=== PATIENT | male | born 1945 | race Caucasian/White ===

== ENCOUNTER 2018-03-27 10:32 | Emergency (ER) | payer MEDICARE, OTHER ==
[2018-03-27 11:20] LABS: ABSOLUTE BASOPHILS # (AUTO) 0.1 10^3/uL (0.0-0.2); ABSOLUTE EOSINOPHILS # (AUTO) 0.1 10^3/uL (0.0-0.6); ABSOLUTE LYMPHOCYTES (AUTO) 1.7 10^3/uL (0.5-4.7); ABSOLUTE MONOCYTES (AUTO) 1.3 10^3/uL (0.1-1.4); ABSOLUTE NEUT (AUTO) 9.7 10^3/uL (1.7-8.2); BASOPHILS % (AUTO) 0.9 % (0-2); EOSINOPHILS % (AUTO) 0.7 % (0-6); HEMATOCRIT 35.9 % (37.9-51.0); HEMOGLOBIN 12.2 g/dL (13.5-17.0); LYMPHOCYTES % (AUTO) 13.3 % (13-45); MEAN CORPUSCULAR HEMOGLOBIN 27.8 pg (27.0-33.4); MEAN CORPUSCULAR HGB CONC 33.9 g/dL (32.0-36.0); MEAN CORPUSCULAR VOLUME 82 fl (80-97); PLATELET COUNT 439 10^3/uL (150-450); RED BLOOD COUNT 4.38 10^6/uL (4.35-5.55); RED CELL DISTRIBUTION WIDTH 14.2 % (11.5-14.0); SEGMENTED NEUTROPHILS % (AUTO) 75.1 % (42-78); TOTAL CELLS COUNTED % (AUTO) 100 %; WHITE BLOOD COUNT 12.9 10^3/uL (4.0-10.5)
[2018-03-27 11:52] LABS: ALANINE AMINOTRANSFERASE 16 U/L (21-72); ALBUMIN 3.7 g/dL (3.5-5.0); ALKALINE PHOSPHATASE 59 U/L (38-126); ANION GAP 13 (5-19); ASPARTATE AMINO TRANSFERASE 21 U/L (17-59); BILIRUBIN,DIRECT 0.6 mg/dL (0.0-0.4); BILIRUBIN,TOTAL 0.6 mg/dL (0.2-1.3); BLOOD UREA NITROGEN 18 mg/dL (7-20); CALCIUM 10.1 mg/dL (8.4-10.2); CARBON DIOXIDE 27 mmol/L (22-30); CHLORIDE 100 mmol/L (98-107); CREATINE KINASE 41 U/L (55-170); GLUCOSE 115 mg/dL (75-110); POTASSIUM 4.5 mmol/L (3.6-5.0); TOTAL PROTEIN 7.3 g/dL (6.3-8.2)
[2018-03-27 12:03] LABS: CREATINE KINASE MB 0.36 ng/mL (<4.55)
[2018-03-27 12:04] LABS: TROPONIN I < 0.012 ng/mL
--- NOTE | 2018-03-27 12:19 | RADIOLOGY REPORT (SQ) ---
EXAM DESCRIPTION: CHEST SINGLE VIEW COMPLETED DATE/TIME: 03/27/2018 11:47 am REASON FOR STUDY: SOB COMPARISON: 02/02/2013 EXAM PARAMETERS: NUMBER OF VIEWS: One view. TECHNIQUE: Single frontal radiographic view of the chest acquired. RADIATION DOSE: NA LIMITATIONS: None. FINDINGS: LUNGS AND PLEURA: Hyperexpansion of the lungs. Masslike opacification in the left upper l obe measuring about 7 or 8 cm. MEDIASTINUM AND HILAR STRUCTURES: No masses. Contour normal. HEART AND VASCULAR STRUCTURES: Heart normal in size. Normal vasculature. BONES: No acute findings. HARDWARE: Sternotomy wires. Graft markers. OTHER: No other significant finding. IMPRESSION: Large left upper lobe lung mass versus consolidation. TECHNICAL DOCUMENTATION: JOB ID: [id number] [employer] [place]- All Rights Reserved Reading location - IP/workstation name: [email or web address]
[2018-03-27] MEDS ORDERED: NORMAL SALINE 1000 ML 1,000 ML IV ONE (12:23)
[2018-03-27] MEDS ORDERED: IPRATROPIUM/ALBUTEROL 0.5-2.5 MG/3 ML AMPUL NEB ONE (12:24)
[2018-03-27] MEDS ORDERED: LEVOFLOXACIN 500 MG/D5W RTU 500 MG/100 ML RTUPB IV ONE (12:32)
[2018-03-27 13:05] LABS: APPEARANCE,URINE CLEAR; BILIRUBIN,URINE NEGATIVE (NEGATIVE); COLOR,URINE YELLOW; GLUCOSE, URINE NEGATIVE (NEGATIVE); KETONES,URINE NEGATIVE (NEGATIVE); LEUKOCYTE ESTERASE,URINE NEGATIVE (NEGATIVE); NITRITE,URINE NEGATIVE (NEGATIVE); PROTEIN,URINE NEGATIVE (NEGATIVE); URINE SPECIFIC GRAVITY 1.015
--- NOTE | 2018-03-27 14:29 | RADIOLOGY REPORT (SQ) ---
EXAM DESCRIPTION: CTA CHEST COMPLETED DATE/TIME: 03/27/2018 2:11 pm REASON FOR STUDY: SOB,eval lung mass v pna COMPARISON: Chest x-ray dated 03/27/2018. TECHNIQUE: CT scan of the chest performed using helical scanning technique with dynamic intravenous contrast injection. Images reviewed with lung, soft tissue and bone windows. Reconstructed coronal and sagittal MPR images reviewed. Additional 3 dimensional post-processing performed to develop Maximal Intensity Projection images (DC P). All images stored on PACS. All CT scanners at this facility use dose modulation, iterative reconstruction, and/or weight based d osing when appropriate to reduce radiation dose to as low as reasonably achievable (ALARA). [facility]: Dose Right [facility]: CareDose [facility]: Dose Right [facility]: Teradose 4D [facility]: CloudSync CONTRAST TYPE AND DOSE: 67 mL Isovue 370- low osmolar. Contrast bolus adequate for pulmonary arteries and aorta. RENAL FUNCTION: BUN 18 creatinine 1.23. RADIATION DOSE: CT Rad equipment meets quality standard of care and radiation dose reduction techniq ues were employed. CTDIvol: 14.3 - 16.5 mGy. DLP: 637 mGy-cm. . LIMITATIONS: None. FINDINGS: LUNGS AND PLEURA: Emphysematous changes with scarring in the lung apices. Large mass occu pying a large portion of the left upper lobe. AP measurement 8.4 cm, transverse measurement 7.6 cm, craniocaudal measurement 9.4 cm. The mass extends from the left hilum to the lateral pleural surface . The mass surrounds and encases the left upper lobe pulmonary artery and left main pulmonary artery . 4 mm nodule in the right lower lobe (axial series 4, image 84), 5 mm subpleural nodule in the left lower lobe (axial series 4, image 77), and 1.1 cm nodule in the left lower lobe (axial series 4, boo ge 85). Minimal left pleural effusion. AORTA AND GREAT VESSELS: No aneurysm. No dissection. HEART: No pericardial effusion. No significant coronary artery calcifications. PULMONARY ARTERIES: No emboli visualized in the main pulmonary arteries or the segmental branches. HILAR AND MEDIASTINAL STRUCTURES: Several enlarged paratracheal lymph nodes measuring up to 1.4 cm. Enlarged subcarinal lymph node measuring 3.5 cm. HARDWARE: None in the chest. UPPER ABDOMEN: No significant findings. Limited exam. THYROID AND OTHER SOFT TISSUES: 1.3 cm solid nodule in the subcutaneous fatty tissues of the right an terior chest wall (axial series 3, image 105). BONES: No acute or significant finding. 3D MIPS: Confirm above findings. OTHER: No other significant finding. IMPRESSION: 1. LARGE MASS IN THE LEFT UPPER LOBE MOST CONSISTENT WITH MALIGNANCY. THERE ARE PULMONARY NODULES IN BOTH LOWER LOBES CONCERNING FOR METASTASES, PARTICULARLY THE LARGER 1.1 CM NODULE IN THE LEFT LOWER LOBE. 2. 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 3. SOLID NODULE IN THE SOFT TISSUES OF THE ANTERIOR RIGHT CHEST WALL. THIS COULD BE A DERMATOLOGIC L ESION ALTHOUGH SOFT TISSUE METASTASIS WOULD BE ANOTHER CONSIDERATION. 4. EMPHYSEMATOUS CHANGES WITH SCARRING IN THE LUNG APICES. MINIMAL LEFT PLEURAL EFFUSION. 5. NORMAL CTA OF THE CHEST. NO PULMONARY EMBOLI. COMMENT: Quality ID # [id number]: Final reports with documentation of one or more dose reduction techniques (e.g., Automated exposure control, adjustment of the mA and/or kV according to patient size, use of iterative reconstruction technique) TECHNICAL DOCUMENTATION: JOB ID: [id number] [email or web address]- All Rights Reserved Reading location - IP/workstation name: [email or web address]
[2018-03-27] MEDS ORDERED: PREDNISONE 20 MG TABLET PO ONE (14:46)
[2018-03-27] MEDS ORDERED: ALBUTEROL SULFATE HFA (90 MCG/PUFF) 8 GM MDI (1 MDI/ER DISP) IH ONE (14:48)
--- NOTE | 2018-03-27 14:51 | ER Document Report ---
ED General - General Chief Complaint: Shortness Of Breath Stated Complaint: SHORTNESS OF BREATH Time Seen by Provider: 03/27/18 11:42 - HPI Patient complains to provider of: Shortness of breath Notes: Patient coming in for evaluation shortness of breath patient has a significant smoking history states shortness of breath worsening especially with exertion. Patient states he is intermittent formally diagnosed with form COPD however states there was some slight changes in his last PFT testing. Patient states PCP is Dr. Rojas who he has a appointment with the see on the 6 however because worsening shortness of breath came in for further evaluation denies any chest pain denies any recent travel denies fevers chills nausea vomiting diarrhea states cough with white sputum states also having some night sweats. Patient resting comfortably upon my evaluation no signs of hypoxia.. - Related Data Allergies/Adverse Reactions: No Known Allergies Allergy (Verified 03/27/18 10:42) Past Medical History - Social History Smoking Status: Current Every Day Smoker Chew tobacco use (# tins/day): No Frequency of alcohol use: None Drug Abuse: None Family History: Reviewed & Not Pertinent Patient has suicidal ideation: No Patient has homicidal ideation: No - Past Medical History Cardiac Medical History: Reports: Hx Coronary Artery Disease, Hx Heart Attack, Hx Hypertension Renal/ Medical History: Denies: Hx Peritoneal Dialysis Past Surgical History: Reports: Hx Open Heart Surgery - triple bypass - Immunizations Hx Pneumococcal Vaccination: 02/02/13 Review of Systems - Review of Systems Constitutional: No symptoms reported EENT: No symptoms reported Cardiovascular: No symptoms reported Respiratory: Other - Dyspnea on exertion Gastrointestinal: No symptoms reported Genitourinary: No symptoms reported Male Genitourinary: No symptoms reported Musculoskeletal: No symptoms reported Skin: No symptoms reported Hematologic/Lymphatic: No symptoms reported Neurological/Psychological: No symptoms reported Physical Exam - Vital signs Vitals: Temp Pulse Resp BP Pulse Ox 97.9 F 96 18 135/88 H 97 03/27/18 10:47 03/27/18 10:47 03/27/18 10:47 03/27/18 10:47 03/27/18 10:47 Interpretation: Normal - General General appearance: Appears well, Alert - HEENT Head: Normocephalic, Atraumatic Eyes: Normal Pupils: PERRL - Respiratory Respiratory status: No respiratory distress Chest status: Nontender Breath sounds: Wheezing Chest palpation: Normal - Cardiovascular Rhythm: Regular Heart sounds: Normal auscultation Murmur: No - Abdominal Inspection: Normal Distension: No distension Bowel sounds: Normal Tenderness: Nontender Organomegaly: No organomegaly - Back Back: Normal, Nontender - Extremities General upper extremity: Normal inspection, Nontender, Normal color, Normal ROM , Normal temperature General lower extremity: Normal inspection, Nontender, Normal color, Normal ROM , Normal temperature, Normal weight bearing. No: Nika's sign - Neurological Neuro grossly intact: Yes Cognition: Normal Orientation: AAOx4 [place] Coma Scale Eye Opening: Spontaneous [place] Coma Scale Verbal: Oriented [place] Coma Scale Motor: Obeys Commands [place] Coma Scale Total: 15 Speech: Normal Motor strength normal: LUE, RUE, LLE, RLE Sensory: Normal - Psychological Associated symptoms: Normal affect, Normal mood - Skin Skin Temperature: Warm Skin Moisture: Dry Skin Color: Normal Course - Re-evaluation Re-evalutation: 03/27/18 15:[address] scan and x-ray confirmed the patient has a large mass left upper lobe initially concerning for possible pulmonic process or obstructive pneumonia therefore patient was started on Levaquin did discuss with PCP as to continue Levaquin for 7 days last steroids and bronchodilator therapy. Otherwise patient is not requiring any supportive therapy for us patient understands his diagnosis is more likely underlying metastatic disease and his need for follow- up on the sixth as scheduled. PCPs agrees plan patent patient agrees this plan patient will be discharged home - Vital Signs Vital signs: Temp Pulse Resp BP Pulse Ox 97.9 F 96 23 H 135/83 H 98 03/27/18 10:47 03/27/18 10:47 03/27/18 12:01 03/27/18 12:01 03/27/18 12:00 - Laboratory Result Diagrams: 03/27/18 11:12 03/27/18 11:12 Laboratory results interpreted by me: 03/27/18 03/27/18 03/27/18 11:12 11:12 12:26 WBC 12.9 H Hgb 12.2 L Hct 35.9 L RDW 14.2 H Absolute Neutrophils 9.7 H Est GFR (Non-Af Amer) 58 L Glucose 115 H Direct Bilirubin 0.6 H ALT 16 L Creatine Kinase 41 L Urine Urobilinogen 2.0 H Discharge - Discharge Clinical Impression: Shortness of breath, Mass of left lung Condition: Good Disposition: HOME, SELF-CARE Instructions: Chronic Obstructive Lung Disease ([facility]), Growth or Mass, Pending Workup ([facility]) Additional Instructions: Your evaluation today shows a left lung mass that may be underlying cancer. I discussed the case with your primary care physician. There are multiple steps that lightheaded you the most important is following up with him on the sixth for further evaluation and to start the referral process. 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 Please take his medications as prescribed return to ER symptoms worsen. Prescriptions: Albuterol Sulfate [Proair HFA Inhalation Aerosol 8.5 gm MDI] 2 puff IH Q4H PRN # 1 mdi PRN Reason: Levofloxacin [Levaquin] 500 mg PO DAILY #6 tablet Prednisone [Deltasone] 60 mg PO DAILY #24 tablet Forms: Smoking Cessation Education Referrals: KRUPA ROJAS MD [Primary Care Provider] - 03/29/18
[2018-03-27 15:27] VITALS: BP 156/85
--- NOTE | 2018-03-27 20:00 | EKG REPORT ---
SEVERITY:- NORMAL ECG - SINUS RHYTHM : Confirmed by: Sherley Davila MD 27-Mar-2018 19:59:48
== END 2018-03-27 15:28 | disposition home or self-care (01) ==
LOC: ER 10:32
DX: R06.02 Shortness of breath (principal); R91.8 Other nonspecific abnormal finding of lung field; F17.200 Nicotine dependence, unspecified, uncomplicated; I25.10 Atherosclerotic heart disease of native coronary artery without angina pectoris; I10 Essential (primary) hypertension
CPT/HCPCS: 93005; 94640; 99285; 96365; 36415; 87040; 82553; 82550; 85025; 80053; 81001; 84484; 71045; 71275; 93010; J1956; A9270 ×2; J7030; J3490; J7512; J7620

== ENCOUNTER 2018-04-02 10:57 | Emergency (ER) | payer MEDICARE, OTHER ==
--- NOTE | 2018-04-02 11:14 | ER Document Report ---
ED Medical Screen (RME) - General Chief Complaint: Lower Abdominal Pain Stated Complaint: POSSIBLE HERNIA Time Seen by Provider: 04/02/18 11:10 Mode of Arrival: Wheelchair Information source: Patient Notes: This is a 73-year-old man with a long history of a right inguinal hernia resenting with lower abdominal pain around that hernia. Patient states that the pain is gotten worse lately because of increased coughing. He is recently been diagnosed with a large lung mass consistent with cancer and suspected metastases. He is a patient of Dr. Rojas. He states that the pain has been getting worse with the coughing. I have greeted and performed a rapid initial assessment of this patient. A comprehensive ED assessment and evaluation of the patient, analysis of test results and completion of medical decision making process we will be contacted by additional ED providers. - Related Data Allergies/Adverse Reactions: No Known Allergies Allergy (Verified 04/02/18 10:58) Past Medical History - Past Medical History Cardiac Medical History: Reports: Hx Coronary Artery Disease, Hx Heart Attack, Hx Hypertension Renal/ Medical History: Denies: Hx Peritoneal Dialysis Past Surgical History: Reports: Hx Open Heart Surgery - triple bypass Physical Exam - Vital signs Vitals: Temp Pulse Resp BP Pulse Ox 97.4 F 106 H 16 146/95 H 98 04/02/18 11:01 04/02/18 11:01 04/02/18 11:01 04/02/18 11:01 04/02/18 11:01 Course - Vital Signs Vital signs: Temp Pulse Resp BP Pulse Ox 97.4 F 106 H 16 146/95 H 98 04/02/18 11:01 04/02/18 11:01 04/02/18 11:01 04/02/18 11:01 04/02/18 11:01 Doctor's Discharge - Discharge Referrals: KRUPA ROJAS MD [Primary Care Provider] - Follow up as needed
[2018-04-02 11:47] LABS: HEMATOCRIT 36.9 % (37.9-51.0); HEMOGLOBIN 12.4 g/dL (13.5-17.0); MEAN CORPUSCULAR HEMOGLOBIN 27.5 pg (27.0-33.4); MEAN CORPUSCULAR HGB CONC 33.6 g/dL (32.0-36.0); MEAN CORPUSCULAR VOLUME 82 fl (80-97); PLATELET COUNT 422 10^3/uL (150-450); RED BLOOD COUNT 4.51 10^6/uL (4.35-5.55); RED CELL DISTRIBUTION WIDTH 14.6 % (11.5-14.0); WHITE BLOOD COUNT 20.7 10^3/uL (4.0-10.5)
[2018-04-02 11:58] LABS: ALANINE AMINOTRANSFERASE 15 U/L (21-72); ALBUMIN 3.2 g/dL (3.5-5.0); ALKALINE PHOSPHATASE 57 U/L (38-126); ANION GAP 13 (5-19); ASPARTATE AMINO TRANSFERASE 19 U/L (17-59); BILIRUBIN,DIRECT 0.4 mg/dL (0.0-0.4); BILIRUBIN,TOTAL 0.4 mg/dL (0.2-1.3); BLOOD UREA NITROGEN 18 mg/dL (7-20); CALCIUM 9.4 mg/dL (8.4-10.2); CARBON DIOXIDE 28 mmol/L (22-30); CHLORIDE 101 mmol/L (98-107); GLUCOSE 101 mg/dL (75-110); POTASSIUM 3.8 mmol/L (3.6-5.0); SODIUM 141.7 mmol/L (137-145); TOTAL PROTEIN 6.3 g/dL (6.3-8.2)
[2018-04-02 12:11] LABS: ABSOLUTE LYMPHOCYTES# (MANUAL) 1.7 10^3/uL (0.5-4.7); ABSOLUTE MONOCYTES # (MANUAL) 1.4 10^3/uL (0.1-1.4); ABSOLUTE NEUTROPHILS# (MANUAL) 17.6 10^3/uL (1.7-8.2); BASOPHILS % (MANUAL) 0 % (0-2); EOSINOPHILS % (MANUAL) 0 % (0-6); LYMPHOCYTES % (MANUAL) 8 % (13-45); MONOCYTES % (MANUAL) 7 % (3-13); SEGMENTED NEUTROPHILS % (MAN) 85 % (42-78); TOTAL CELLS COUNTED 100
[2018-04-02 12:13] LABS: ANISOCYTOSIS SLIGHT; OVALOCYTES SLIGHT; PLATELET COMMENT ADEQUATE; POIKILOCYTOSIS SLIGHT
[2018-04-02] MEDS ORDERED: NORMAL SALINE 1000 ML 1,000 ML IV ONE (12:26)
[2018-04-02] MEDS ORDERED: HYDROCODONE/ACETAMINOPHEN 5-325 MG TABLET PO ONE (12:26)
--- NOTE | 2018-04-02 13:10 | ER Document Report ---
ED General - General Chief Complaint: Lower Abdominal Pain Stated Complaint: POSSIBLE HERNIA Time Seen by Provider: 04/02/18 11:10 Mode of Arrival: Wheelchair Information source: Patient, Relative Notes: 73-year-old male with a known lung mass presents with complaints of an inguinal hernia that is causing him pain. Patient notes the hernia has started to bother him over the past couple weeks and that he has had this for at least 30 years. He denies any constipation that is new, last bowel movement was 2 days ago which is normal for him, patient notes the hernia is easily reducible, he does note a 10 pound weight loss in the past month - HPI Onset: Last week Onset/Duration: Waxing and waning Quality of pain: Sharp Severity: Moderate Pain Level: 2 Associated symptoms: Other Exacerbated by: Coughing Relieved by: Other - Resolved with pressure Similar symptoms previously: Yes Recently seen / treated by doctor: Yes - Related Data Allergies/Adverse Reactions: No Known Allergies Allergy (Verified 04/02/18 10:58) Past Medical History - General Information source: Patient - Social History Smoking Status: Current Every Day Smoker Cigarette use (# per day): Yes Chew tobacco use (# tins/day): No Smoking Education Provided: No Frequency of alcohol use: Occasional Drug Abuse: None Family History: Reviewed & Not Pertinent Patient has suicidal ideation: No Patient has homicidal ideation: No - Past Medical History Cardiac Medical History: Reports: Hx Coronary Artery Disease, Hx Heart Attack, Hx Hypertension Renal/ Medical History: Denies: Hx Peritoneal Dialysis Past Surgical History: Reports: Hx Open Heart Surgery - triple bypass - Immunizations Hx Pneumococcal Vaccination: 02/02/13 Review of Systems - Review of Systems Notes: REVIEW OF SYSTEMS: CONSTITUTIONAL : Denies fever, chills, or sweats. Denies recent illness. EENT: Denies eye, ear, throat, or mouth pain or symptoms. Denies nasal or sinus congestion or discharge. Denies throat, tongue, or mouth swelling or difficulty swallowing. CARDIOVASCULAR: Denies chest pain. Denies palpitations or racing or irregular heart beat. Denies ankle edema. RESPIRATORY: Denies cough, cold, or chest congestion. Denies shortness of breath, difficulty breathing, or wheezing. GASTROINTESTINAL: Admits to inguinal mass GENITOURINARY: Denies difficulty urinating, painful urination, burning, frequency, blood in urine, or discharge. MUSCULOSKELETAL: Denies back or neck pain or stiffness. Denies joint pain or swelling. SKIN: Denies rash, lesions or sores. HEMATOLOGIC : Denies easy bruising or bleeding. LYMPHATIC: Denies swollen, enlarged glands. NEUROLOGICAL: Denies confusion or altered mental status. Denies passing out or loss of consciousness. Denies dizziness or lightheadedness. Denies headache. Denies weakness or paralysis or loss of use of either side. Denies problems with gait or speech. Denies sensory loss, numbness, or tingling. Denies seizures. PSYCHIATRIC: Denies anxiety or stress. Denies depression, suicidal ideation, or homicidal ideation. ALL OTHER SYSTEMS REVIEWED AND NEGATIVE. Dictation was performed using [employer] voice recognition software PHYSICAL EXAMINATION: GENERAL: Well-appearing, well-nourished and in no acute distress. HEAD: Atraumatic, normocephalic. EYES: Pupils equal round and reactive to light, extraocular movements intact, sclera anicteric, conjunctiva are normal. ENT: Nares patent, oropharynx clear without exudates. Moist mucous membranes. NECK: Normal range of motion, supple without lymphadenopathy LUNGS: Breath sounds clear to auscultation bilaterally and equal. No wheezes rales or rhonchi. HEART: Regular rate and rhythm without murmurs ABDOMEN: Soft, nontender, nondistended abdomen. No guarding, no rebound. No masses appreciated. Large right inguinal hernia easily reduced with gentle pressure Musculoskeletal: Normal range of motion, no pitting or edema. No cyanosis. NEUROLOGICAL: Cranial nerves grossly intact. Normal speech, normal gait. Normal sensory, motor exams PSYCH: Normal mood, normal affect. SKIN: Warm, Dry, normal turgor, no rashes or lesions noted. Physical Exam - Vital signs Vitals: Temp Pulse Resp BP Pulse Ox 97.4 F 106 H 16 146/95 H 98 04/02/18 11:01 04/02/18 11:01 04/02/18 11:01 04/02/18 11:01 04/02/18 11:01 Course - Re-evaluation Re-evalutation: 04/02/18 16:13 Patient's white count is noted to be 20.7 however he is on prednisone, patient is on antibiotics for pneumonia as well, a CT oral and IV contrast was performed , there is no obstruction noted however there is multiple masses concerning for metastasis, I did explain this to family and to the patient, patient is very understanding of these findings and states he will follow-up with oncology on his first appointment on Tuesday. Patient was given pain control notes significant improvement of his symptoms, After performing a Medical Screening Examination, I estimate there is LOW risk forINCARCERATED HERNIA,thus I consider the discharge disposition reasonable. Also, there is no evidence or peritonitis, sepsis, or toxicity. I have reevaluated this patient multiple times and no significant life threatening changes are noted. The patient and I have discussed the diagnosis and risks, and we agree with discharging home with close follow-up with the understanding that symptoms and presentations can change. We also discussed returning to the Emergency Department immediately if new or worsening symptoms occur. We have discussed the symptoms which are most concerning (e.g., bloody stool, fever, changing or worsening pain, intractable vomiting - standard verbal up date) that necessitate immediate return. 04/02/18 16:15 - Vital Signs Vital signs: Temp Pulse Resp BP Pulse Ox 97.7 F 83 16 141/89 H 99 04/02/18 14:55 04/02/18 14:55 04/02/18 14:55 04/02/18 14:55 04/02/18 14:55 - Laboratory Result Diagrams: 04/02/18 11:25 04/02/18 11:25 Laboratory results interpreted by me: 04/02/18 04/02/18 11:25 11:25 WBC 20.7 H Hgb 12.4 L Hct 36.9 L RDW 14.6 H Seg Neuts % (Manual) 85 H Lymphocytes % (Manual) 8 L Abs Neuts (Manual) 17.6 H ALT 15 L Albumin 3.2 L - Diagnostic Test Radiology reviewed: Image reviewed - CT oral and IV contrast consistent with multiple soft tissue nodules, Reports reviewed Procedures - Additional Procedures hernia reduction Time performed: 12:35 - using gentle traction large right inguinal hernia reduced Discharge - Discharge Clinical Impression: Mass of left lung Abdominal mass Qualifiers: Abdominal location: generalized Qualified Code(s): R19.07 - Generalized intra- abdominal and pelvic swelling, mass and lump Inguinal hernia Qualifiers: Obstruction and gangrene presence: without obstruction or gangrene Laterality: unilateral Recurrence: recurrent Qualified Code(s): K40.91 - Unilateral inguinal hernia, without obstruction or gangrene, recurrent Condition: Stable Disposition: HOME, SELF-CARE Instructions: Growth or Mass, Pending Workup ([facility]) Prescriptions: Hydrocodone/Acetaminophen [[place] 5-325 mg Tablet] 1 tab PO Q6 #30 tablet Referrals: KRUPA ROJAS MD [Primary Care Provider] - Follow up as needed
--- NOTE | 2018-04-02 14:27 | RADIOLOGY REPORT (SQ) ---
EXAM DESCRIPTION: CT ABD/PELVIS WITH IV ORAL COMPLETED DATE/TIME: 04/02/2018 2:09 pm REASON FOR STUDY: lower anbdominal pain around hernia COMPARISON: CT chest 03/27/2018. TECHNIQUE: CT scan of the abdomen and pelvis performed with intravenous and oral contrast using bryon renetta scanning technique with dynamic intravenous contrast injection. Images reviewed with lung, soft t issue, and bone windows. Reconstructed coronal and sagittal MPR images reviewed. Delayed images for e valuation of the urinary system also acquired. All images stored on PACS. All CT scanners at this facility use dose modulation, iterative reconstruction, and/or weight based d osing when appropriate to reduce radiation dose to as low as reasonably achievable (ALARA). [facility]: Dose Right [facility]: CareDose [facility]: Dose Right [facility]: Teradose 4D [facility]: [employer] CONTRAST TYPE AND DOSE: contrast/concentration: Isovue 370.00 mg/ml; Total Contrast Delivered: 78.0 ml; Total Saline Delivered: 67.0 ml RENAL FUNCTION: GFR > 60. RADIATION DOSE: CT Rad equipment meets quality standard of care and radiation dose reduction techniq ues were employed. CTDIvol: 5.1 - 6.3 mGy. DLP: 608 mGy-cm.. LIMITATIONS: None. FINDINGS: LOWER CHEST: Clear lung bases. Along the subcutaneous tissues of the ventral chest wall, there are small soft tissue nodules. Largest on the right (image 3), 1.4 cm. LIVER: Normal size. No masses. No dilated ducts. SPLEEN: Normal size. No focal lesions. PANCREAS: No masses. No significant calcifications. No adjacent inflammation or peripancreatic fluid collections. Pancreatic duct not dilated. GALLBLADDER: No identified stones by CT criteria. No inflammatory changes to suggest cholecystitis. ADRENAL GLANDS: No significant masses or asymmetry. RIGHT KIDNEY AND URETER: No solid masses. No significant calcification. No hydronephrosis or hydroure ter. LEFT KIDNEY AND URETER: No solid masses. No significant calcification. No hydronephrosis or hydrouret er. AORTA AND VESSELS: Infrarenal aortic aneurysm, up to 3.3 cm. Patent major arterial branches. No thania ous clot detected. RETROPERITONEUM: Small soft tissue nodules are present in the retroperitoneum just above the right ki dney and below the lower pole of the left kidney. BOWEL AND PERITONEAL CAVITY: Mild gaseous distension of much of the transverse colon with moderate pr oximal colonic stool. No evidence of mechanical bowel obstruction. No bowel related inflammatory pr ocess. APPENDIX: Not visualized. PELVIS: Small right perirectal soft tissue nodule, subcentimeter. Axial image 83. Enlarged prostate . Normal bladder. Along the most inferior images, there is a potential perineal soft tissue mass me asuring 2.5 cm, image 96. This lies posterior to the testicles. ABDOMINAL WALL: Minimal right inguinal hernia containing fat. This also contains a minimal amount of colon. BONES: No significant or acute findings. OTHER: No other significant finding. IMPRESSION: 1. No acute abdominopelvic abnormality appreciated. 2. Soft tissue implants in the re troperitoneum and pelvis. Suspicious for metastases, particularly in light of the known lung mass an d chest wall subcutaneous nodules. This includes a sizable perineal lesion, incompletely assessed. TECHNICAL DOCUMENTATION: JOB ID: [id number] Quality ID # [id number]: Final reports with documentation of one or more dose reduction techniques (e.g., Au tomated exposure control, adjustment of the mA and/or kV according to patient size, use of iterative reconstruction technique) [email or web address] Rights Reserved Reading location - IP/workstation name: [email or web address]
[2018-04-02 14:56] VITALS: BP 141/89
== END 2018-04-02 14:55 | disposition home or self-care (01) ==
LOC: ER 10:57
DX: K40.91 Unilateral inguinal hernia, without obstruction or gangrene, recurrent (principal); R19.07 Generalized intra-abdominal and pelvic swelling, mass and lump; R91.8 Other nonspecific abnormal finding of lung field; R63.4 Abnormal weight loss; Z68.1 Body mass index [BMI] 19.9 or less, adult; I25.10 Atherosclerotic heart disease of native coronary artery without angina pectoris; I10 Essential (primary) hypertension; F17.210 Nicotine dependence, cigarettes, uncomplicated; Z95.1 Presence of aortocoronary bypass graft
CPT/HCPCS: 99284; 96360; 36415; 83605; 85025; 80053; 74177; J7030; A9270

== ENCOUNTER 2018-04-05 05:39 | Inpatient (IN) | payer MEDICARE, OTHER ==
[2018-04-05 06:52] LABS: ALANINE AMINOTRANSFERASE 19 U/L (21-72); ALBUMIN 2.9 g/dL (3.5-5.0); ALKALINE PHOSPHATASE 64 U/L (38-126); ANION GAP 9 (5-19); ASPARTATE AMINO TRANSFERASE 26 U/L (17-59); BILIRUBIN,DIRECT 0.4 mg/dL (0.0-0.4); BILIRUBIN,TOTAL 0.4 mg/dL (0.2-1.3); BLOOD UREA NITROGEN 19 mg/dL (7-20); CALCIUM 8.6 mg/dL (8.4-10.2); CARBON DIOXIDE 26 mmol/L (22-30); CHLORIDE 102 mmol/L (98-107); GLUCOSE 106 mg/dL (75-110); LIPASE 33.4 U/L (23-300); POTASSIUM 4.1 mmol/L (3.6-5.0); SODIUM 137.3 mmol/L (137-145); TOTAL PROTEIN 5.9 g/dL (6.3-8.2)
[2018-04-05 06:53] LABS: ACETAMINOPHEN < 10 ug/mL (10-30); ALCOHOL < 10 mg/dL (NONE DETECTED); SALICYLATE < 1.0 mg/dL (2.0-20.0)
--- NOTE | 2018-04-05 07:00 | RADIOLOGY REPORT (SQ) ---
Clinical History : weakness , Exam : CT Head without contrast 04/05/2018 6:30 AM CDT Comparisons : none. Technique : Volumetric CT acquisition was performed through the brain. Images in the axial, coronal, and sagittal planes were presented for interpretation. This exam was performed according to our departmental dose-optimization program, which includes automated exposure control, adjustment of the mA and/or kV according to patient size and/or use of iterative reconstruction technique. Radiation dose : [id number] Findings: The soft tissue structures of the face, scalp, and orbits are normal. The globes remain intact. There is a scleral band on the left. The patient is status post bilateral cataract resection. The visualized portions of the paranasal sinuses and mastoid air-cells are clear. The calvarium remains intact . There is no acute intracranial hemorrhage, midline shift, or mass effect. The ventricles are normal in size and the posterior fossa structures are normal in appearance. Limited evaluation of the vasculature demonstrates no gross abnormalities. There is no CT evidence of acute infarction. Impression: No acute intracranial process.
[2018-04-05 07:05] LABS: AMORPHOUS SEDIMENT,URINE TRACE /HPF; APPEARANCE,URINE CLOUDY; BILIRUBIN,URINE NEGATIVE (NEGATIVE); COLOR,URINE YELLOW; GLUCOSE, URINE NEGATIVE (NEGATIVE); KETONES,URINE NEGATIVE (NEGATIVE); LEUKOCYTE ESTERASE,URINE NEGATIVE (NEGATIVE); NITRITE,URINE NEGATIVE (NEGATIVE); PROTEIN,URINE NEGATIVE (NEGATIVE); URINE SPECIFIC GRAVITY 1.013; UROBILINOGEN,URINE NEGATIVE mg/dL (<2.0)
--- NOTE | 2018-04-05 07:13 | RADIOLOGY REPORT (SQ) ---
Clinical History : weakness , Exam : PA and lateral views of the chest 04/05/2018 6:29 AM CDT Comparisons : PA and lateral views the chest February 02, 2013 Findings : There is confluent left upper lobe airspace disease. There are moderate emphysematous changes throughout the lungs bilaterally. There is no pleural effusion. The heart is stable in size. The mediastinal contours are distorted by patient rotation to the left . There are vascular calcifications along the aortic arch. The patient is status post sternotomy and CABG. The thoracic spine is age appropriate. The shoulders are unremarkable. Limited evaluation of the upper abdomen demonstrates no gross abnormalities. Impression: 1. Left upper lobe airspace disease, follow-up to radiographic resolution is recommended. 2. Stable emphysema.
[2018-04-05 07:16] LABS: URINE AMPHETAMINES SCREEN NEGATIVE; URINE BARBITURATES SCREEN NEGATIVE; URINE BENZODIAZEPINES SCREEN NEGATIVE; URINE COCAINE SCREEN NEGATIVE; URINE MARIJUANA (THC) SCREEN NEGATIVE; URINE METHADONE SCREEN NEGATIVE; URINE PHENCYCLIDINE SCREEN NEGATIVE
--- NOTE | 2018-04-05 07:16 | EKG REPORT ---
SEVERITY:- BORDERLINE ECG - SINUS TACHYCARDIA PROBABLE LEFT ATRIAL ABNORMALITY : Confirmed by: Zuhair Reid MD 05-Apr-2018 07:15:07
[2018-04-05 07:20] LABS: TROPONIN I 0.061 ng/mL
[2018-04-05] MEDS ORDERED: ASPIRIN 81 MG TABLET, CHEWABLE PO ONE (07:25)
--- NOTE | 2018-04-05 07:37 | ER Document Report ---
ED General - General Chief Complaint: Weakness Stated Complaint: WEAKNESS Time Seen by Provider: 04/05/18 06:02 Mode of Arrival: Medic Information source: Patient, Relative, Emergency Med Personnel, [facility] Records Notes: 73-year-old male with coronary artery disease, hypertension, lung cancer, associated metastasis presents with complaint of inability to move both arms and legs. Patient states that he awoke this morning and was unable to move his arms and legs. He states that he was "flopping around his bed like a fish." Patient denies slurred speech, chest pain, shortness of breath, fever, chills, nausea, vomiting. He denies prior similar symptoms. He states last night he went to bed feeling well. Patient is normally able to completely care for himself. TRAVEL OUTSIDE OF THE [place] IN LAST 30 DAYS: No - HPI Onset: This morning Onset/Duration: Gradual Quality of pain: Throbbing Severity: Moderate Associated symptoms: Body/muscle aches, Weakness. denies: Chest pain, Nausea, Vomiting Exacerbated by: Denies Relieved by: Denies Similar symptoms previously: No Recently seen / treated by doctor: Yes - Related Data Allergies/Adverse Reactions: No Known Allergies Allergy (Verified 04/02/18 10:58) Past Medical History - General Information source: Patient, Relative, [facility] Records - Social History Smoking Status: Current Every Day Smoker Cigarette use (# per day): Yes - 10 Chew tobacco use (# tins/day): No Smoking Education Provided: Yes - Patient counselled regarding cessation for 4 minutes Frequency of alcohol use: None Drug Abuse: None Lives with: Family Family History: Reviewed & Not Pertinent Patient has suicidal ideation: No Patient has homicidal ideation: No - Past Medical History Cardiac Medical History: Reports: Hx Coronary Artery Disease, Hx Heart Attack, Hx Hypertension Renal/ Medical History: Denies: Hx Peritoneal Dialysis Past Surgical History: Reports: Hx Open Heart Surgery - triple bypass - Immunizations Hx Pneumococcal Vaccination: 02/02/13 Review of Systems - Review of Systems Constitutional: Weakness. denies: Fever EENT: denies: Blurred vision Cardiovascular: denies: Chest pain, Palpitations, Syncope, Dizziness, Lightheaded Respiratory: denies: Short of breath Gastrointestinal: Abdominal pain - Chronic right inguinal hernia Genitourinary: denies: Dysuria, Flank pain Male Genitourinary: No symptoms reported Musculoskeletal: Muscle pain, Muscle stiffness Skin: Dryness Hematologic/Lymphatic: denies: Easy bleeding Neurological/Psychological: Loss of power, Paralysis. denies: Confusion, Hallucinations, Lost consciousness, Headaches -: Yes All other systems reviewed and negative Physical Exam - Vital signs Vitals: Resp Pulse Ox 18 94 04/05/18 05:46 04/05/18 05:46 - Notes Notes: PHYSICAL EXAMINATION: GENERAL: Well-appearing, well-nourished and in no acute distress. HEAD: Atraumatic, normocephalic. EYES: Pupils equal round and reactive to light, extraocular movements intact, sclera anicteric, conjunctiva are normal. ENT: Nares patent, oropharynx clear without exudates. Dry mucous membranes. NECK: Normal range of motion, supple without lymphadenopathy LUNGS: Breath sounds clear to auscultation bilaterally and equal. No wheezes rales or rhonchi. HEART: Regular rate and rhythm without murmurs ABDOMEN: Soft, nontender, nondistended abdomen. No guarding, no rebound. Right inguinal hernia easily reduced. Musculoskeletal: Normal range of motion, no pitting or edema. No cyanosis. NEUROLOGICAL: Cranial nerves grossly intact. Normal speech. Normal sensory, motor exams. NIH of 1 for right lower extremity drift. PSYCH: Normal mood, normal affect. SKIN: Warm, Dry, normal turgor, no rashes or lesions noted. Course - Re-evaluation Re-evalutation: Laboratory 04/05/18 04/05/18 04/05/18 05:44 05:44 05:44 APTT 35.4 Sodium 137.3 Potassium 4.1 Chloride 102 Carbon Dioxide 26 Anion Gap 9 BUN 19 Creatinine 1.02 Est GFR ( Amer) > 60 Est GFR (Non-Af Amer) > 60 Glucose 106 Lactic Acid Calcium 8.6 Total Bilirubin 0.4 Direct Bilirubin 0.4 Neonat Total Bilirubin Not Reportable Neonat Direct Bilirubin Not Reportable Neonat Indirect Bili Not Reportable AST 26 ALT 19 L Alkaline Phosphatase 64 Troponin I 0.061 NT-Pro-B Natriuret Pep 1220 H Total Protein 5.9 L Albumin 2.9 L Lipase 33.4 Urine Color Urine Appearance Urine pH Ur Specific [place] Urine Protein Urine Glucose (UA) Urine Ketones Urine Blood Urine Nitrite Urine Bilirubin Urine Urobilinogen Ur Leukocyte Esterase Urine WBC (Auto) Urine RBC (Auto) Amorphous Sediment Auto Urine Mucus (Auto) Urine Ascorbic Acid Salicylates < 1.0 L Urine Opiates Screen Urine Methadone Screen Acetaminophen < 10 L Ur Barbiturates Screen Ur Phencyclidine Scrn Ur Amphetamines Screen U Benzodiazepines Scrn Urine Cocaine Screen U Marijuana (THC) Screen Serum Alcohol < 10 04/05/18 04/05/18 04/05/18 06:02 06:02 07:00 APTT Sodium Potassium Chloride Carbon Dioxide Anion Gap BUN Creatinine Est GFR ( Amer) Est GFR (Non-Af Amer) Glucose Lactic Acid 1.6 Calcium Total Bilirubin Direct Bilirubin Neonat Total Bilirubin Neonat Direct Bilirubin Neonat Indirect Bili AST ALT Alkaline Phosphatase Troponin I NT-Pro-B Natriuret Pep Total Protein Albumin Lipase Urine Color YELLOW Urine Appearance CLOUDY Urine pH 8.0 Ur Specific [place] 1.013 Urine Protein NEGATIVE Urine Glucose (UA) NEGATIVE Urine Ketones NEGATIVE Urine Blood NEGATIVE Urine Nitrite NEGATIVE Urine Bilirubin NEGATIVE Urine Urobilinogen NEGATIVE Ur Leukocyte Esterase NEGATIVE Urine WBC (Auto) 3 Urine RBC (Auto) 2 Amorphous Sediment Auto TRACE Urine Mucus (Auto) RARE Urine Ascorbic Acid NEGATIVE Salicylates Urine Opiates Screen UNCONFIRMED POSITIVE Urine Methadone Screen NEGATIVE Acetaminophen Ur Barbiturates Screen NEGATIVE Ur Phencyclidine Scrn NEGATIVE Ur Amphetamines Screen NEGATIVE U Benzodiazepines Scrn NEGATIVE Urine Cocaine Screen NEGATIVE U Marijuana (THC) Screen NEGATIVE Serum Alcohol 04/05/18 10:08 APTT Sodium Potassium Chloride Carbon Dioxide Anion Gap BUN Creatinine Est GFR ( Amer) Est GFR (Non-Af Amer) Glucose Lactic Acid Calcium Total Bilirubin Direct Bilirubin Neonat Total Bilirubin Neonat Direct Bilirubin Neonat Indirect Bili AST ALT Alkaline Phosphatase Troponin I 0.056 NT-Pro-B Natriuret Pep Total Protein Albumin Lipase Urine Color Urine Appearance Urine pH Ur Specific [place] Urine Protein Urine Glucose (UA) Urine Ketones Urine Blood Urine Nitrite Urine Bilirubin Urine Urobilinogen Ur Leukocyte Esterase Urine WBC (Auto) Urine RBC (Auto) Amorphous Sediment Auto Urine Mucus (Auto) Urine Ascorbic Acid Salicylates Urine Opiates Screen Urine Methadone Screen Acetaminophen Ur Barbiturates Screen Ur Phencyclidine Scrn Ur Amphetamines Screen U Benzodiazepines Scrn Urine Cocaine Screen U Marijuana (THC) Screen Serum Alcohol Head MRI 04/05/18 08:16 IMPRESSION: Diffusion-weighted images are positive for two tiny foci of restricted diffusion in the left precentral gyrus high over the left frontal convexity, indicating tiny nonhemorrhagic cortical infarcts. White matter disease in the deep periventricular and pericallosal regions, question remote prior demyelinating disease versus chronic small vessel ischemic change. EVIDENCE OF ACUTE STROKE: Yes 04/05/18 07:35 Patient found to have an indeterminate troponin. Troponin done 03/27/2018 was within normal limits. Today patient's troponin is 0.061. He denies any current chest pain. EKG does show that he is in sinus tachycardia at a rate of 103. 04/05/18 08:[address] Miller who does not feel patient meets inpatient criteria at this time. He states that he is not concerned with the indeterminate troponin since the patient has no chest pain. Recommends repeat troponin and an MRI. 04/05/18 14:35 73-year-old male with coronary artery disease, hypertension, lung cancer, associated metastasis presents with complaint of inability to move both arms and legs. Patient states that he awoke this morning and was unable to move his arms and legs. He states that he was "flopping around his bed like a fish." Patient denies slurred speech, chest pain, shortness of breath, fever, chills, nausea, vomiting. He denies prior similar symptoms. He states last night he went to bed feeling well. Patient is normally able to completely care for himself. Upon arrival EKG was obtained and showed the patient to be in sinus tachycardia at a rate of 103. NIH was performed and 1 for right lower extremity drift. CT of the head was obtained and showed no acute process. MRI was obtained and positive for 2 tiny foci in the precentral gyrus consistent with acute stroke. Because the patient woke up with his symptoms time of onset is not clear. He is not a TPA candidate at this time. Patient did receive aspirin. Initial troponin indeterminate. Repeat troponin elevated but trending downward. Patient was accepted by Dr. Miller to the [facility]. Patient reevaluated multiple times without change in his neurologic status or exam. Family and patient updated regarding findings. They are agreeable with admission. Patient resting comfortably. 04/05/18 14:41 - Vital Signs Vital signs: Temp Pulse Resp BP Pulse Ox 98.6 F 77 16 141/88 H 95 04/05/18 14:30 04/05/18 10:34 04/05/18 10:34 04/05/18 13:31 04/05/18 13:31 - Laboratory Result Diagrams: 04/05/18 05:44 Laboratory results interpreted by me: 04/05/18 04/05/18 05:44 05:44 ALT 19 L NT-Pro-B Natriuret Pep 1220 H Total Protein 5.9 L Albumin 2.9 L Salicylates < 1.0 L Acetaminophen < 10 L - Diagnostic Test Radiology reviewed: Image reviewed, Reports reviewed Critical Care Note - Critical Care Note Total time excluding time spent on procedures (mins): 30 - minutes of critical care time spent in direct contact evaluating and reevaluating the patient, treating symptoms, reviewing labs and studies and speaking with family and consultants excluding any procedures Discharge - Discharge Clinical Impression: Weakness, INDETERMINATE TRP, Elevated brain natriuretic peptide (BNP) level Stroke Qualifiers: CVA mechanism: other Qualified Code(s): I63.8 - Other cerebral infarction Lung cancer Qualifiers: Laterality: unspecified laterality Lung location: unspecified part of lung Qualified Code(s): C34.90 - Malignant neoplasm of unspecified part of unspecified bronchus or lung Metastasis Qualifiers: Area of secondary neoplastic involvement: other site Qualified Code(s): C79.89 - Secondary malignant neoplasm of other specified sites Condition: Good Disposition: ADMITTED INPATIENT Admitting Provider: Angela Unit Admitted: [facility] ED NIH Stroke Scale - NIH Stroke Scale *: 1. NIH scale should be completed with appropriate accompanying assessment tools. *: 2. The NIH should reflect what the patient is capable of doing and should not be coached by the clinician. 1a. Level of Consciousness: 0=Alert;keenly responsive -: 1=Drowsy -: 2=Obtunded -: 3=Coma/unresponsive or reflex to noxious stimuli. 1a. Responses: 0 1b. Orientation Questions: a. What month is it? -: b. How old are you? -: 0=Answers both questions correctly. -: 1=Answers one question correctly or patient is intubated or has orotracheal trauma. -: 2=Answers neither question correctly. 1b. Responses: 0 1c. Response to commands: a. Open and close eyes? -: b. Undercover Cop and release hand? -: Credit is given despite weakness. Demonstration of task is permitted. Substitute command if hands cannot be used. -: 0=Performs both tasks correctly -: 1=Performs one task correctly -: 2=Performs neither task correctly 1c. Responses: 0 2. Gaze: Establish eye contact and instruct patient to "Follow my finger" -: 0=Normal -: 1=Partial gaze palsy. Gaze is abnormal in one or both eyes, but where forced deviation or total gaze paresis is not present. -: 2=Forced deviation or total gaze paresis. 2. Responses: 0 3. Visual Ruiz: Sees fingers in all four quadrants. -: 0=No visual loss. -: 1=Partial hemianopsia. -: 2=Complete hemianopsia. -: 3=Bilateral hemianopsia (including Cortical blindness) 3. Responses: 0 4. Facial Movement: Instruct patient to: -: a. Show me your teeth -: b. Raise your eyebrows -: c. Close your eyes -: d. Smile -: 0=Normal symmetrical movement -: 1=Minor paralysis (flattened nasolabial fold, asymmetry on smiling). -: 2=Partial paralysis (total or near total paralysis of lower face). -: 3=Complete paralysis of upper and lower face 4. Responses: 0 5. Motor functions (left arm): Alternate sides and extend each arm with palms down (90 degrees if sitting or 45 degrees for supine). -: 0=No drift;limb holds for full 10 seconds. -: 1=Drift; limb holds but drifts down before full 10 seconds, but does not hit bed. -: 2=Some effort against gravity; limb cannot get to or maintain position. -: 3=No effort against gravity; limb falls. -: 4=No movement. -: UN=Amputation, joint fusion, explain in comments. 5. Responses (left arm): 0 5. Motor Functions (right arm): Alternate sides and extend each arm with palms down (90 degrees if sitting or 45 degrees for supine). -: 0=No drift;limb holds for full 10 seconds. -: 1=Drift; limb holds but drifts down before full 10 seconds, but does not hit bed. -: 2=Some effort against gravity; limb cannot get to or maintain position. -: 3=No effort against gravity; limb falls. -: 4=No movement. -: UN=Amputation, joint fusion, explain in comments. 5. Responses (right arm): 0 6. Motor Functions (left leg): With patient lying supine, alternate sides and extend each leg (30 degrees always while supine). -: 0=No drift, leg holds position for full 5 seconds -: 1=Drift; leg falls before full 5 seconds but does not hit bed. -: 2=Some effort against gravity, leg falls to bed but some effort against gravity. -: 3=No effort against gravity, leg falls to bed immediately. -: 4=No movement. -: UN=Amputation, joint fusion; explain in comments. 6. Motor Functions (right leg): With patient lying supine, alternate sides and extend each leg (30 degrees always while supine). -: 0=No drift, leg holds position for full 5 seconds -: 1=Drift; leg falls before full 5 seconds but does not hit bed. -: 2=Some effort against gravity, leg falls to bed but some effort against gravity. -: 3=No effort against gravity, leg falls to bed immediately. -: 4=No movement. -: UN=Amputation, joint fusion; explain in comments. 6. Responses (right leg): 1 7. Limb Ataxia: With eyes open instruct patient to: -: a. "Touch your finger to your nose". -: b. "Touch your heel to your marsh" -: 0=Absent -: 1=Present in one limb. -: 2=Present in two limbs. -: UN=Amputation or joint fusion; explain in comments. 7. Responses: 0 8. Sensory: Test sensation using pinprick or noxious stimuli. Test as many body parts as possible. -: 0=Normal;no sensory loss -: 1=Mile to moderate sensory loss (patient feels pin prick but is less sharp on affected side). -: 2=Severe or total sensory loss. 8. Responses: 0 9. Best Language: Instruct patient to: -: a. "Describe what you see in this picture." -: b. "Name the items in this picture." -: c. "Read these sentences." -: 0=No aphasia, normal -: 1=Mild to moderate aphasia. -: 2=Severe aphasia -: 3=Mute, global aphasia, no usable speech or auditory comprehension. 9. Responses: 0 10. Articulation, Dysarthia: Instruct patient to: -: "Read these words" or "Repeat these words" -: 0=Normal -: 1=Mild to moderate; patient may slur some words but can be understood without difficulty. -: 2=Severe; patients speech so slurred as to be unintelligible in the absence of dysphasia. -: UN=Intubated or other physical barrier, explain in comments. 10. Responses: 0 11. Extinction or inattention: 0=No abnormality -: 1= Visual, tactile, auditory, spatial, or personal inattention or extinction to bilateral simulation in one or the sensory modalities. -: 2=Profound aaron-inattention or aaron-inattention to more than one modality; does not recognize own hand. 11. Responses: 0 Total Score: 1
[2018-04-05] MEDS ORDERED: NORMAL SALINE 1000 ML 1,000 ML IV ONE (08:38)
[2018-04-05] MEDS ORDERED: FENTANYL CITRATE INJ/PF 100 MCG/2 ML AMPUL IV ONE (08:39)
--- NOTE | 2018-04-05 10:21 | RADIOLOGY REPORT (SQ) ---
EXAM DESCRIPTION: MRI HEAD COMBO COMPLETED DATE/TIME: 04/05/2018 9:58 am REASON FOR STUDY: weakness COMPARISON: CT BRAIN 04/05/2018 TECHNIQUE: Multiplanar imaging includes noncontrasted T1, T2, FLAIR, diffusion with ADC map and post gadolinium contrast T1 sequences. Images stored on PACS. CONTRAST TYPE AND DOSE: 15 mL Prohance. RENAL FUNCTION: GFR > 60. LIMITATIONS: None. FINDINGS: ANATOMY: No developmental anomalies. Normal vascular flow voids. Pituitary fossa normal. CSF SPACES: Normal in size and contour. No hemorrhage. CEREBRUM: There is chronic white matter disease in the bilateral posterior temporal, occipital, parie jennifer, and frontal white matter in the deep periventricular and deep pericallosal white matter. This m ay represent old remote prior demyelinating disease. Chronic small vessel ischemic change is possibl e. Diffusion-weighted images 23 and 24 are positive for punctate tiny foci of restricted diffusion in th e left precentral gyrus high over the left frontal convexity. This is worrisome for tiny acute nonhe morrhagic cortical infarct. Findings discussed with Dr. Bonilla. No acute intracranial hemorrhage, mass effect, or midline shift. POSTERIOR FOSSA: No signal alteration. No hemorrhage. No edema, masses, or mass effect. Internal gege tory canals, cerebellopontine angles, mastoids normal. No enhancing lesions. No abnormal enhancement post contrast. DIFFUSION IMAGING: Positive as above ORBITS: No masses. Globes post cataract surgery. PARANASAL SINUSES: No fluid levels. Mucosa normal. OTHER: Minimal left mastoid air cell fluid. IMPRESSION: Diffusion-weighted images are positive for two tiny foci of restricted diffusion in the left precentral gyrus high over the left frontal convexity, indicating tiny nonhemorrhagic cortical i nfarcts. White matter disease in the deep periventricular and pericallosal regions, question remote prior demy elinating disease versus chronic small vessel ischemic change. EVIDENCE OF ACUTE STROKE: Yes TECHNICAL DOCUMENTATION: JOB ID: [id number]- All Rights Reserved Reading location - IP/workstation name: [facility] IN[email or web address] BEDS AT THE [facility]
[2018-04-05] MEDS ORDERED: DEXTROSE 50%-WATER 25 GM/50 ML DISP.SYRIN IV PRN ×2 (13:21)
[2018-04-05] MEDS ORDERED: GLUCAGON,HUMAN RECOMB 1 MG INJ SUBCUT PRN (13:21)
[2018-04-05] MEDS ORDERED: DEXTROSE 40% GEL 15 GM TUBE PO PRN ×2 (13:21)
--- NOTE | 2018-04-05 13:28 | EKG REPORT ---
SEVERITY:- NORMAL ECG - SINUS RHYTHM : Confirmed by: Zuhair Reid MD 05-Apr-2018 13:27:24
[2018-04-05] MEDS: NORMAL SALINE 1000 ML 1,000 ML IV PRN (14:25)
[2018-04-05] MEDS ORDERED: ENOXAPARIN SODIUM INJ 40 MG/0.4 ML DISP.SYRIN SUBCUT ONE ×2 (14:30→18:30)
--- NOTE | 2018-04-05 15:38 | RADIOLOGY REPORT (SQ) ---
EXAM DESCRIPTION: CAROTID DOPPLER COMPLETED DATE/TIME: 04/05/2018 3:23 pm REASON FOR STUDY: cva COMPARISON: MRI brain 04/05/2018 CT brain 04/05/2018 TECHNIQUE: Grayscale ultrasound, Doppler velocity and spectra, and color Doppler images acquired of the extra-cranial carotid and vertebral arteries. Images stored on PACS. LIMITATIONS: None. FINDINGS: RIGHT CAROTID CCA Velocities: Within normal limits. ICA Velocities Peak systolic 0.89 m/s. End diastolic 0.31 m/s. Proximal ICA/CCA peak systolic ratio 1.2. There is calcific shadowing plaque at the right carotid bifurcation. Immediately distal to the shado wing plaque, ICA velocities suggest against flow significant stenosis. LEFT CAROTID CCA Velocities: Within normal limits. ICA Velocities Peak systolic 0.83 m/s. End diastolic 0.25 m/s. Proximal ICA/CCA peak systolic ratio 1.0. There is calcific shadowing plaque at the left carotid bifurcation. Immediately distal to the shadow ing plaque, ICA velocities suggest against flow significant stenosis VERTEBRAL ARTERIES: Antegrade flow. Normal waveforms. SUBCLAVIAN ARTERIES: Not evaluated OTHER: No other significant finding. IMPRESSION: Calcific plaque at both carotid bifurcations without Doppler velocity abnormalities. No flow significant stenosis of the proximal internal carotid arteries bilaterally. COMMENT: Quality ID #[id number]: Velocity criteria are extrapolated from the diameter data as defined by t he Society of Radiologists in Ultrasound Consensus Conference. Radiology 2003: 229; 340-346. TECHNICAL DOCUMENTATION: JOB ID: [id number] [employer]- All Rights Reserved Reading location - IP/workstation name: [email or web address]
[2018-04-05 16:28] LABS: HEMATOCRIT 31.9 % (37.9-51.0); HEMOGLOBIN 10.4 g/dL (13.5-17.0); MEAN CORPUSCULAR HEMOGLOBIN 26.9 pg (27.0-33.4); MEAN CORPUSCULAR HGB CONC 32.8 g/dL (32.0-36.0); MEAN CORPUSCULAR VOLUME 82 fl (80-97); PLATELET COUNT 243 10^3/uL (150-450); RED BLOOD COUNT 3.89 10^6/uL (4.35-5.55); WHITE BLOOD COUNT 13.6 10^3/uL (4.0-10.5)
[2018-04-05 16:35] LABS: INTERNATIONAL RATION (INR) 1.34; PROTHROMBIN TIME 17.3 SEC (11.4-15.4)
[2018-04-05 16:36] LABS: PARTIAL THROMBOPLASTIN TIME 42.1 SEC (23.5-35.8)
[2018-04-05 17:04] LABS: CREATINE KINASE MB 0.28 ng/mL (<4.55); TROPONIN I 0.047 ng/mL
--- NOTE | 2018-04-05 18:40 | PDOC H&P ---
History of Present Illness Admission Date/PCP: 04/05/18 12:07 KRUPA ROJAS MD History of Present Illness: STEPHAN BELTRAN is a 73 year old male,He came to the emergency room today for evaluation of weakness of both lower extremities, generalized tremor, he apparently came to the emergency room on 03/27/2018 for evaluation of shortness of breath, at the time he had a CTA chest done, it showed emphysematous changes with scarring in the lung apices. Large mass occupying a large portion of the left upper lobe, AP measurements 8.4 cm transverse measurement 7.3 cm craniocaudal measurement 9.4 cm. The mass extends from the left hilum to the lateral pleural surface. The mass surrounds and encases the left upper lobe pulmonary artery on the left main pulmonary artery no emboli was found at the time in the pulmonary arteries also found was several enlarged paratracheal lymph nodes. He saw Dr. Rojas in the office, he was referred to oncology, he told me that he saw her oncologist Dr. Valdez, he is scheduled for a biopsy outpatient.He came to the emergency room again on 04/02/2018 for evaluation of lower abdominal pain CT scan of the abdomen and pelvis with IV contrast was done this was negative but there was soft tissue implants in the retroperitoneum and pelvis suspicious for metastasis. MRI of the brain was done today because he presented with weakness MRI showed tiny foci of restricted diffusion in the left precentral gyrus indicating tiny nonhemorrhagic cortical infarcts. I believe patient's symptoms is more consistent with paraneoplastic syndrome the infarcts are very small I am not convinced they will explain his weakness is manifesting.He has a very large lung mass there is no tissue diagnosis yet, he be scheduled for CT-guided biopsy if the radiologist will do the biopsy Past Medical History Cardiac Medical History: Reports: Coronary Artery Disease, Myocardial Infarction , Hypertension Malignancy Medical History: Reports: Lung Cancer Social History Lives with: Family Smoking Status: Current Every Day Smoker Cigarettes Packs Per Day: 1 Number of Years Smokin Frequency of Alcohol Use: None Hx Recreational Drug Use: No Hx Prescription Drug Abuse: No - Advance Directive Resuscitation Status: Full Code Family History Family History: Reviewed & Not Pertinent Parental Family History Reviewed: Yes Children Family History Reviewed: Yes Sibling(s) Family History Reviewed.: Yes Medication/Allergy Home Medications: No Home Medications 04/05/18 Allergies/Adverse Reactions: No Known Allergies Allergy (Verified 04/02/18 10:58) Review of Systems Constitutional: PRESENT: fatigue, weight loss Eyes: ABSENT: visual disturbances Ears: ABSENT: hearing changes Cardiovascular: ABSENT: chest pain, dyspnea on exertion, edema, orthropnea, palpitations Respiratory: ABSENT: cough, hemoptysis Gastrointestinal: ABSENT: abdominal pain, constipation, diarrhea, hematemesis, hematochezia, nausea, vomiting Genitourinary: ABSENT: dysuria, hematuria Musculoskeletal: ABSENT: joint swelling Integumentary: ABSENT: rash, wounds Neurological: PRESENT: focal weakness, lack of coordination Psychiatric: ABSENT: anxiety, depression, homidical ideation, suicidal ideation Endocrine: ABSENT: cold intolerance, heat intolerance, menstrual abnormalities, polydipsia, polyuria Hematologic/Lymphatic: ABSENT: easy bleeding, easy bruising, lymphadenopathy Physical Exam Vital Signs: Temp Pulse Resp BP Pulse Ox 98.1 F 95 18 152/75 H 98 04/05/18 17:06 04/05/18 17:44 04/05/18 17:44 04/05/18 17:44 04/05/18 17:44 Intake & Output 04/04/18 04/05/18 04/06/18 06:59 06:59 06:59 Intake Total 60 Balance 60 Weight 72 kg General appearance: PRESENT: thin Head exam: PRESENT: atraumatic, normocephalic Eye exam: PRESENT: PERRLA Ear exam: PRESENT: normal external ear exam Mouth exam: PRESENT: moist, tongue midline Neck exam: PRESENT: full ROM Respiratory exam: PRESENT: decreased breath sounds Cardiovascular exam: PRESENT: RRR, +S1, +S2 Vascular exam: PRESENT: normal capillary refill GI/Abdominal exam: PRESENT: hernia, normal bowel sounds, soft, other - Right inguinal hernia Neurological exam: PRESENT: alert, CN II-XII grossly intact Psychiatric exam: PRESENT: appropriate affect, normal mood Skin exam: PRESENT: dry, intact, warm Results Laboratory Results: 04/05/18 16:15 04/05/18 16:15 04/05/18 04/05/18 16:15 16:15 WBC 13.6 H RBC 3.89 L Hgb 10.4 L Hct 31.9 L MCV 82 MCH 26.9 L MCHC 32.8 RDW 15.0 H Plt Count 243 Creatinine 0.99 Est GFR ( Amer) > 60 Est GFR (Non-Af Amer) > 60 04/05/18 04/05/18 16:15 16:15 Creatine Kinase 43 L CK-MB (CK-2) 0.28 Troponin I 0.047 Impressions: Carotid Doppler Study 04/05/18 00:00 IMPRESSION: Calcific plaque at both carotid bifurcations without Doppler velocity abnormalities. No flow significant stenosis of the proximal internal carotid arteries bilaterally. Head MRI 04/05/18 08:16 IMPRESSION: Diffusion-weighted images are positive for two tiny foci of restricted diffusion in the left precentral gyrus high over the left frontal convexity, indicating tiny nonhemorrhagic cortical infarcts. White matter disease in the deep periventricular and pericallosal regions, question remote prior demyelinating disease versus chronic small vessel ischemic change. EVIDENCE OF ACUTE STROKE: Yes Assessment & Plan - Diagnosis (1) Cerebrovascular accident Qualifiers: CVA mechanism: unspecified Qualified Code(s): I63.9 - Cerebral infarction, unspecified Is this a current diagnosis for this admission?: Yes (2) Malignant neoplasm of upper lobe, left bronchus or lung Is this a current diagnosis for this admission?: Yes Plan: CT-guided lung biopsy is ordered (3) Paraneoplastic neurologic disorder Is this a current diagnosis for this admission?: Yes Plan: The weakness is more likely paraneoplastic neurologic disorder, it is unlikely the weakness is from the stroke (5) Abdominal aortic aneurysm Qualifiers: Presence of rupture: without rupture Qualified Code(s): I71.4 - Abdominal aortic aneurysm, without rupture Is this a current diagnosis for this admission?: Yes
[2018-04-05] MEDS: ATORVASTATIN CALCIUM 80 MG TABLET PO SCH (21:02)
[2018-04-05] MEDS: HYDROCODONE/ACETAMINOPHEN 10-325 MG TABLET PO PRN (21:03)
[2018-04-05] MEDS ORDERED: ASPIRIN/DIPYRIDAMOLE 25-200 MG 1 CAP.SR CPMP.12HR PO SCH (22:00)
[2018-04-06 00:47] LABS: CREATINE KINASE MB 0.24 ng/mL (<4.55); TROPONIN I 0.038 ng/mL
[2018-04-06] MEDS: HYDROCODONE/ACETAMINOPHEN 10-325 MG TABLET PO PRN ×4 (01:22→20:53)
[2018-04-06 06:43] LABS: CREATINE KINASE MB 0.26 ng/mL (<4.55); TROPONIN I 0.031 ng/mL
[2018-04-06] MEDS: ENOXAPARIN SODIUM INJ 40 MG/0.4 ML DISP.SYRIN SUBCUT SCH (09:28)
[2018-04-06] MEDS ORDERED: ONDANSETRON 4 MG TAB.RAPDIS PO PRN (18:34)
[2018-04-06] MEDS ORDERED: ACETAMINOPHEN 325 MG TABLET PO PRN (18:35)
[2018-04-06] MEDS: LEVOFLOXACIN 750 MG TABLET PO SCH (19:41)
--- NOTE | 2018-04-06 19:53 | PDOC PROGRESS REPORT ---
Subjective Progress Note for:: 04/06/18 Subjective:: The lung biopsy could not be done because he had Aggrenox yesterday, he presented with a stroke, he was given Aggrenox for the stroke, he has a huge lung mass most likely is lung cancer is a smoker for many years. He had fever today with 101 temperature, increased risk of postoperative pneumonia, empirically start Levaquin p.o., is scheduled for outpatient PET scan on Tuesday , hopefully discharge him home in a day or 2 days to pursue outpatient study Reason For Visit: ACUTE CVA Physical Exam Vital Signs: Temp Pulse Resp BP Pulse Ox 101.0 F H 93 16 145/71 H 97 04/06/18 16:17 04/06/18 16:17 04/06/18 16:17 04/06/18 16:17 04/06/18 16:17 Intake & Output 04/05/18 04/06/18 04/07/18 06:59 06:59 06:59 Intake Total 570 785 Balance 570 785 Weight 71.3 kg General appearance: PRESENT: no acute distress Eye exam: PRESENT: PERRLA Respiratory exam: PRESENT: decreased breath sounds Cardiovascular exam: PRESENT: +S1, +S2 GI/Abdominal exam: PRESENT: soft Neurological exam: PRESENT: alert Results Laboratory Results: 04/05/18 16:15 04/05/18 16:15 04/05/18 04/05/18 04/06/18 16:15 16:15 00:15 Creatine Kinase 43 L 39 L CK-MB (CK-2) 0.28 Troponin I 0.047 04/06/18 04/06/18 04/06/18 00:15 06:03 06:03 Creatine Kinase 35 L CK-MB (CK-2) 0.24 0.26 Troponin I 0.038 0.031 Impressions: Carotid Doppler Study 04/05/18 00:00 IMPRESSION: Calcific plaque at both carotid bifurcations without Doppler velocity abnormalities. No flow significant stenosis of the proximal internal carotid arteries bilaterally. Head MRI 04/05/18 08:16 IMPRESSION: Diffusion-weighted images are positive for two tiny foci of restricted diffusion in the left precentral gyrus high over the left frontal convexity, indicating tiny nonhemorrhagic cortical infarcts. White matter disease in the deep periventricular and pericallosal regions, question remote prior demyelinating disease versus chronic small vessel ischemic change. EVIDENCE OF ACUTE STROKE: Yes Assessment & Plan - Diagnosis (1) Cerebrovascular accident Qualifiers: CVA mechanism: unspecified Qualified Code(s): I63.9 - Cerebral infarction, unspecified Is this a current diagnosis for this admission?: Yes (2) Malignant neoplasm of upper lobe, left bronchus or lung Is this a current diagnosis for this admission?: Yes (3) Paraneoplastic neurologic disorder Is this a current diagnosis for this admission?: Yes (4) Right inguinal hernia Is this a current diagnosis for this admission?: Yes (5) Abdominal aortic aneurysm Qualifiers: Presence of rupture: without rupture Qualified Code(s): I71.4 - Abdominal aortic aneurysm, without rupture Is this a current diagnosis for this admission?: Yes (6) Postobstructive pneumonia Is this a current diagnosis for this admission?: Yes Plan: Start p.o. Levaquin
[2018-04-06] MEDS: ASPIRIN/DIPYRIDAMOLE 25-200 MG 1 CAP.SR CPMP.12HR PO SCH (20:53)
[2018-04-06] MEDS: ATORVASTATIN CALCIUM 80 MG TABLET PO SCH (20:54)
[2018-04-06] MEDS: NORMAL SALINE 1000 ML 1,000 ML IV PRN (20:56)
[2018-04-07] MEDS: HYDROCODONE/ACETAMINOPHEN 10-325 MG TABLET PO PRN ×3 (06:18→16:15)
--- NOTE | 2018-04-07 08:10 | PDOC CONSULTATION ---
Consultation Consult Date: 04/07/18 Attending physician:: VENITA VILLALBA Consult reason:: Large lung mass, subcutaneous nodules, likely lung cancer History of Present Illness Admission Date/PCP: 04/05/18 12:07 KRUPA ROJAS MD Patient complains of: Fever, weakness History of Present Illness: STEPHAN BELTRAN is a 73 year old male who we did see as an outpatient with newly noted lung mass, mediastinal adenopathy. About 2 weeks ago he came in with increasing shortness of breath and cough, weakness, fever, because he was having shortness of breath and chest pain he had CTA of the chest done which indicated a large nearly 9 cm left upper lobe mass, with associated mediastinal adenopathy. Of note there was some subcutaneous nodules noted on imaging. On physical exam it is palpable to see nodules about 1 cm in the skin subxiphoid, left chest wall. He had CT of the abdomen pelvis done later because of abdominal pain, and that indicated no evidence of organ involvement but there were some retroperitoneal subcutaneous nodules and there was a pelvic/perineum area. Of note he also has a chronic right inguinal hernia that is reducible but painful at all times. He saw me this past week, we set him up for an outpatient PET/CT. This is best to be done this Tuesday. But about 24 hours ago he began experiencing fever at 101, whole body shaking, and weakness in the upper extremity. Here he had MRI of the brain done, and this indicated small area of punctation concerning for small area of stroke. He does have previous history of stroke. He also had carotid Dopplers which were negative. Cardiac enzymes are largely negative. He did have fever yesterday but has been afebrile overnight. Dr. Villalba had initially ordered CT-guided biopsy of the lung, but he was on Aggrenox previously, so that was discontinued and we recommended not initiating that until we have PET/CT. We have the subcutaneous nodules that I think I want to go after. Past Medical History Cardiac Medical History: Reports: Coronary Artery Disease, Myocardial Infarction , Hypertension Malignancy Medical History: Reports: Lung Cancer Psychiatric Medical History: Denies: Depression Social History Information Source: Patient Lives with: Family Smoking Status: Current Every Day Smoker Cigarettes Packs Per Day: 1 Number of Years Smokin Frequency of Alcohol Use: None Hx Recreational Drug Use: No Hx Prescription Drug Abuse: No - Advance Directive Resuscitation Status: Full Code Family History Family History: Reviewed & Not Pertinent Parental Family History Reviewed: Yes Children Family History Reviewed: Yes Sibling(s) Family History Reviewed.: Yes Medication/Allergy Home Medications: No Home Medications 04/05/18 Allergies/Adverse Reactions: No Known Allergies Allergy (Verified 04/02/18 10:58) Review of Systems Constitutional: ABSENT: chills, fever(s), headache(s), weight gain, weight loss Eyes: ABSENT: visual disturbances Ears: ABSENT: hearing changes Cardiovascular: ABSENT: chest pain, dyspnea on exertion, edema, orthropnea, palpitations Respiratory: ABSENT: cough, hemoptysis Gastrointestinal: ABSENT: abdominal pain, constipation, diarrhea, hematemesis, hematochezia, nausea, vomiting Genitourinary: ABSENT: dysuria, hematuria Musculoskeletal: ABSENT: joint swelling Integumentary: ABSENT: rash, wounds Neurological: ABSENT: abnormal gait, abnormal speech, confusion, dizziness, focal weakness, syncope Psychiatric: ABSENT: anxiety, depression, homidical ideation, suicidal ideation Endocrine: ABSENT: cold intolerance, heat intolerance, polydipsia, polyuria Hematologic/Lymphatic: ABSENT: easy bleeding, easy bruising Physical Exam Vital Signs: Temp Pulse Resp BP Pulse Ox 98.4 F 79 16 141/75 H 100 04/07/18 03:35 04/07/18 03:35 04/07/18 03:35 04/07/18 03:35 04/07/18 03:35 Intake & Output 04/06/18 04/07/18 04/08/18 06:59 06:59 06:59 Intake Total 570 1415 Balance 570 1415 Weight 71.3 kg 72.4 kg General appearance: PRESENT: no acute distress, well-developed, well-nourished Head exam: PRESENT: atraumatic, normocephalic Eye exam: PRESENT: conjunctiva pink, EOMI, PERRLA. ABSENT: scleral icterus Ear exam: PRESENT: normal external ear exam Mouth exam: PRESENT: moist, tongue midline Neck exam: ABSENT: carotid bruit, JVD, lymphadenopathy, thyromegaly Respiratory exam: PRESENT: clear to auscultation tammie. ABSENT: rales, rhonchi, wheezes Cardiovascular exam: PRESENT: RRR. ABSENT: diastolic murmur, rubs, systolic murmur Pulses: PRESENT: normal dorsalis pedis pul Vascular exam: PRESENT: normal capillary refill GI/Abdominal exam: PRESENT: normal bowel sounds, soft. ABSENT: distended, guarding, mass, organolmegaly, rebound, tenderness Rectal exam: PRESENT: deferred Extremities exam: PRESENT: full ROM. ABSENT: calf tenderness, clubbing, pedal edema Neurological exam: PRESENT: alert, awake, oriented to person, oriented to place , oriented to time, oriented to situation, CN II-XII grossly intact. ABSENT: motor sensory deficit Psychiatric exam: PRESENT: appropriate affect, normal mood. ABSENT: homicidal ideation, suicidal ideation Skin exam: PRESENT: dry, intact, warm. ABSENT: cyanosis, rash Results Laboratory Results: 04/05/18 16:15 04/05/18 16:15 04/05/18 04/05/18 04/06/18 16:15 16:15 00:15 Creatine Kinase 43 L 39 L CK-MB (CK-2) 0.28 Troponin I 0.047 04/06/18 04/06/18 04/06/18 00:15 06:03 06:03 Creatine Kinase 35 L CK-MB (CK-2) 0.24 0.26 Troponin I 0.038 0.031 Impressions: Carotid Doppler Study 04/05/18 00:00 IMPRESSION: Calcific plaque at both carotid bifurcations without Doppler velocity abnormalities. No flow significant stenosis of the proximal internal carotid arteries bilaterally. Head MRI 04/05/18 08:16 IMPRESSION: Diffusion-weighted images are positive for two tiny foci of restricted diffusion in the left precentral gyrus high over the left frontal convexity, indicating tiny nonhemorrhagic cortical infarcts. White matter disease in the deep periventricular and pericallosal regions, question remote prior demyelinating disease versus chronic small vessel ischemic change. EVIDENCE OF ACUTE STROKE: Yes Status: Image reviewed by me Assessment & Plan - Diagnosis (1) Malignant neoplasm of upper lobe, left bronchus or lung Is this a current diagnosis for this admission?: Yes Plan: It does appear that he has most likely a lung cancer that has metastasized to the skin with subcutaneous nodules. However we do need a diagnosis and I think we should go after the subcutaneous nodules. But I wanted PET/CT prior to ensure that there is PET uptake in those areas. If PET uptake is not in those areas I would favor bronchoscopy with biopsy rather than CT-guided biopsy because I think we can get more tissue for further studies. With lung cancer we need enough tissue for multiple molecular markers, that would help delineate our course of disease treatment. Thus I would favor sending him home, having him do his outpatient PET/CT and decide on surgical biopsy thereafter. - Time Time Spent: Greater than 70 Minutes - Inpatient Certification Based on my medical assessment, after consideration of the patient's comorbidities, presenting symptoms, or acuity I expect that the services needed warrant INPATIENT care.: Yes I certify that my determination is in accordance with my understanding of Medicare's requirements for reasonable and necessary INPATIENT services [42 CFR 412.3e].: Yes Medical Necessity: Need for Neurological Checks, Need for IV Antibiotics, Risk of Complication if Not Cared For in Hospital
[2018-04-07] MEDS: ASPIRIN/DIPYRIDAMOLE 25-200 MG 1 CAP.SR CPMP.12HR PO SCH (09:49)
[2018-04-07] MEDS: ENOXAPARIN SODIUM INJ 40 MG/0.4 ML DISP.SYRIN SUBCUT SCH (09:50)
[2018-04-07 17:56] VITALS: BP 134/74
[2018-04-07] MEDS: LEVOFLOXACIN 750 MG TABLET PO SCH (18:04)
--- NOTE | 2018-04-07 20:27 | PDOC DISCHARGE SUMMARY ---
General - Admit/Disc Date/PCP Admission Date/Primary Care Provider: 04/05/18 12:07 KRUPA ROJAS MD Discharge Date: 04/07/18 - Discharge Diagnosis (1) Cerebrovascular accident Is this a current diagnosis for this admission?: Yes (2) Malignant neoplasm of upper lobe, left bronchus or lung Is this a current diagnosis for this admission?: Yes (3) Paraneoplastic neurologic disorder Is this a current diagnosis for this admission?: Yes (4) Right inguinal hernia Is this a current diagnosis for this admission?: Yes (5) Abdominal aortic aneurysm Is this a current diagnosis for this admission?: Yes (6) Postobstructive pneumonia Is this a current diagnosis for this admission?: Yes - Additional Information Resuscitation Status: Full Code Discharge Diet: As Tolerated Discharge Activity: Activity As Tolerated, Balance Activity w/Rest Prescriptions: Atorvastatin Calcium [Lipitor 80 mg Tablet] 80 mg PO QHS #90 tablet Aspirin/Dipyridamole [Aggrenox 25 mg/200 mg Capsule SA] 1 cap.sr PO Q12 #90 cpmp.12hr Levofloxacin [Levaquin 750 mg Tablet] 750 mg PO DAILY@1900 #10 tablet Home Medications: Aspirin/Dipyridamole [Aggrenox 25 mg/200 mg Capsule SA] 1 cap.sr PO Q12 #90 cpmp.12hr 04/07/18 Atorvastatin Calcium [Lipitor 80 mg Tablet] 80 mg PO QHS #90 tablet 04/07/18 Hydrocodone/Acetaminophen [[place] 10-325 mg Tablet] 1 tab PO Q4HP PRN tablet Levofloxacin [Levaquin 750 mg Tablet] 750 mg PO DAILY@1900 #10 tablet 04/07/18 History of Present Illness History of Present Illness: STEPHAN BELTRAN is a 73 year old male,He came to the emergency room today for evaluation of weakness of both lower extremities, generalized tremor, he apparently came to the emergency room on 03/27/2018 for evaluation of shortness of breath, at the time he had a CTA chest done, it showed emphysematous changes with scarring in the lung apices. Large mass occupying a large portion of the left upper lobe, AP measurements 8.4 cm transverse measurement 7.3 cm craniocaudal measurement 9.4 cm. The mass extends from the left hilum to the lateral pleural surface. The mass surrounds and encases the left upper lobe pulmonary artery on the left main pulmonary artery no emboli was found at the time in the pulmonary arteries also found was several enlarged paratracheal lymph nodes. He saw Dr. Rojas in the office, he was referred to oncology, he told me that he saw her oncologist Dr. Valdez, he is scheduled for a biopsy outpatient.He came to the emergency room again on 04/02/2018 for evaluation of lower abdominal pain CT scan of the abdomen and pelvis with IV contrast was done this was negative but there was soft tissue implants in the retroperitoneum and pelvis suspicious for metastasis. MRI of the brain was done today because he presented with weakness MRI showed tiny foci of restricted diffusion in the left precentral gyrus indicating tiny nonhemorrhagic cortical infarcts. I believe patient's symptoms is more consistent with paraneoplastic syndrome the infarcts are very small I am not convinced they will explain his weakness is manifesting.He has a very large lung mass there is no tissue diagnosis yet, he be scheduled for CT-guided biopsy if the radiologist will do the biopsy Hospital Course Hospital Course: Patient was admitted for the management of lower extremity weakness, CVA was suspected, MRI of the head was done, it showed apparently small cortical infarct. Recently diagnosed with a large right upper lobe mass yet to have a tissue diagnosis but it is more likely than not to be a malignant neoplasm of the lung. He was managed as CVA but it is more likely that the weakness is part of the ParaNeoplastic syndrome other than CVA per se.. He was seen by oncologist as well on this admission ,on day 2 of admission he developed fever with temperature 101 he was diagnosed with postobstructive pneumonia and he was treated with p.o. Levaquin. He is scheduled for outpatient PET scan that would be done on tuesday ,2 days from today ,he has a nodule on the anterior chest wall suspicious for neoplasm ,if the nodule is positive on the PET scan it is easier to biopsy rather than CT-guided needle biopsy of the lung mass , a CT- guided needle biopsy could not be done because patient already had a aggrenox for stroke he needed to be off Aggrenox for 5-7 days before a biopsy could be done but if the the anterior chest wall nodule is positive on PET scan it may not be necessary to stop Aggrenox because this nodule is very superficial Physical Exam Vital Signs: Temp Pulse Resp BP Pulse Ox 98.0 F 90 16 134/74 H 98 04/07/18 17:52 04/07/18 17:52 04/07/18 17:52 04/07/18 17:52 04/07/18 17:52 Intake & Output 04/06/18 04/07/18 04/08/18 06:59 06:59 06:59 Intake Total 570 1415 355 Balance 570 1415 355 Weight 71.3 kg 72.4 kg General appearance: PRESENT: thin Eye exam: PRESENT: PERRLA Respiratory exam: PRESENT: rhonchi, other - There is a nodule on the anterior chest wall Cardiovascular exam: PRESENT: +S1, +S2 GI/Abdominal exam: PRESENT: soft Neurological exam: PRESENT: alert Results Laboratory Results: 04/05/18 16:15 04/05/18 16:15 04/05/18 04/05/18 04/06/18 16:15 16:15 00:15 Creatine Kinase 43 L 39 L CK-MB (CK-2) 0.28 Troponin I 0.047 04/06/18 04/06/18 04/06/18 00:15 06:03 06:03 Creatine Kinase 35 L CK-MB (CK-2) 0.24 0.26 Troponin I 0.038 0.031 Impressions: Carotid Doppler Study 04/05/18 00:00 IMPRESSION: Calcific plaque at both carotid bifurcations without Doppler velocity abnormalities. No flow significant stenosis of the proximal internal carotid arteries bilaterally. Head MRI 04/05/18 08:16 IMPRESSION: Diffusion-weighted images are positive for two tiny foci of restricted diffusion in the left precentral gyrus high over the left frontal convexity, indicating tiny nonhemorrhagic cortical infarcts. White matter disease in the deep periventricular and pericallosal regions, question remote prior demyelinating disease versus chronic small vessel ischemic change. EVIDENCE OF ACUTE STROKE: Yes Qualifiers - * PATIENT BEING DISCHARGED WITH ANY OF THE FOLLOWING DIAGNOSIS: No
== END 2018-04-07 18:20 | disposition home health service (06) | DRG 64 ==
LOC: ER 05:39 → EH 12:07 → 3S 16:33
PROVIDERS: ADMIT Internal Medicine; ATTEND Internal Medicine
DX: I63.9 Cerebral infarction, unspecified (principal); J18.9 Pneumonia, unspecified organism; C34.12 Malignant neoplasm of upper lobe, left bronchus or lung; C79.89 Secondary malignant neoplasm of other specified sites; R29.818 Other symptoms and signs involving the nervous system; K40.90 Unilateral inguinal hernia, without obstruction or gangrene, not specified as recurrent; I71.4 Abdominal aortic aneurysm, without rupture; R25.1 Tremor, unspecified; I25.10 Atherosclerotic heart disease of native coronary artery without angina pectoris; I10 Essential (primary) hypertension; F17.210 Nicotine dependence, cigarettes, uncomplicated; I25.2 Old myocardial infarction
CPT/HCPCS: 36415; 70450; 70553; 71046; 80053; 80307; 81001; 82550; 82553; 82565; 82962; 83605; 83690; 83880; 84484; 85027; 85610; 85730; 93005; 93010; 93880; 96361; 96374; 99291; 99406; A9576; G8978-GP; G8979-GP; G8987-GO; G8988-GO; G8989-GO; J1650; J3010; J7030; S0119

== ENCOUNTER → 2018-04-09 | Outpatient (CLI) | payer MEDICARE, OTHER ==
--- NOTE | 2018-04-10 08:23 | RADIOLOGY REPORT (SQ) ---
EXAM DESCRIPTION: PET CT SKULL/THIGH COMPLETED DATE/TIME: 04/09/2018 9:37 pm REASON FOR STUDY: LUNG CANCER C34.12 MALIGNANT NEOPLASM OF UPPER LOBE, LEFT BRONCHUS OR KARINA COMPARISON: CT abdomen pelvis 04/02/2018 CT angio chest 03/27/2018 RADIONUCLIDE AND DOSE: 10.1 mCi F18 FDG The route of agent administration: Intravenous FASTING BLOOD SUGAR: 107 mg/dl CONTRAST TYPE AND DOSE: No CT contrast given. TECHNIQUE: Blood glucose level was verified. Above dose of FDG was injected intravenously. 2-D seg mented attenuation correction images were obtained from the base of the skull to the midthighs. Nonc ontrast CT images were obtained for attenuation correction and fusion with emission images. CT image s were performed without oral or intravenous contrast and are not sensitive for parenchymal lesions. A series of overlapping emission PET images were obtained. Images reviewed and manipulated at [facility] work station by the radiologist. Images stored on PACS. LIMITATIONS: None. FINDINGS: HEAD AND NECK: 2.5 x 2.2 cm right peritracheal hypermetabolic lymph node at the thoracic i nlet image 50, SUV 9.3. CHEST: A large left upper lobe mass is present, 9 x 8 cm in size with SUV 10.2 highly suspicious for lung primary neoplasm. Massive mediastinal and bilateral hilar adenopathy is present. Index lesions are as follows: Right paratracheal 3 x 2.4 cm node image 54, SUV 10 Pretracheal 3.3 x 2.2 cm lymph node axial image 64 SUV 8.3 Sub- carinal 3.5 x 3.4 cm lymph node axial image 78, SUV 7.6 Bilateral subcentimeter hilar lymph nodes, right side SUV 5, left side SUV 7 ABDOMEN AND PELVIS: Multiple retroperitoneal nodules are present the largest is at the distal tip of the pancreatic tail/ splenic hilum 2.7 x 2.2 cm in size image 131, SUV of 9. There are multiple subcutaneous nodules throughout the neck chest abdomen and pelvis, the largest of these is over the patient's perineum, 3 x 2.6 cm in size image 245 SUV 10.3. PROXIMAL LOWER EXTREMITIES: Subcutaneous hypermetabolic nodules are present. BONES: Diffuse skeletal metastatic disease is present, heavy is burden of vertebral body involvement is in the T1 vertebral body (SUV 7.4), the T12 vertebral body (SUV 7.5), and the L2 vertebral body (S UV 7.9). ADDITIONAL CT FINDINGS: There is a small left pleural effusion, new compared to previous studies. Ad vanced obstructive lung disease. Old sternotomy and CABG. Ectasia infrarenal abdominal aorta 3.7 x 3.4 cm. Small right inguinal hernia. OTHER: Liver background activity 1.7 SUV. Blood pool background activity 1.1 SUV IMPRESSION: Malignant mass left upper lobe with malignant mediastinal and hilar adenopathy, bony met astatic disease, and soft tissue implants in the retroperitoneum and subcutaneous tissues as above. TECHNICAL DOCUMENTATION: JOB ID: [id number] [employer]- All Rights Reserved Reading location - IP/workstation name: [email or web address]
== END ==
LOC: RAD 19:45
PROVIDERS: ATTEND Internal Medicine
DX: C34.12 Malignant neoplasm of upper lobe, left bronchus or lung (principal); J90 Pleural effusion, not elsewhere classified; J44.9 Chronic obstructive pulmonary disease, unspecified; Z95.1 Presence of aortocoronary bypass graft
CPT/HCPCS: 78815; A9552

== ENCOUNTER 2018-04-10 16:33 | Inpatient (IN) | payer MEDICARE, OTHER ==
--- NOTE | 2018-04-10 17:13 | ER Document Report ---
ED General - General TRAVEL OUTSIDE OF THE [place] IN LAST 30 DAYS: No <DONNA BUCKLEY - Last Filed: 04/10/18 19:21> <SANTOSH VARGAS - Last Filed: 04/10/18 20:03> - General Chief Complaint: Pain All Over Stated Complaint: BODY PAIN Time Seen by Provider: 04/10/18 17:05 Notes: Patient is a 73-year-old male who presents to the emergency department today with complaints of intractable pain. Patient was recently diagnosed with a mass in his chest with likely metastasis. Patient was discharged home on narcotic pain medication however he states this is not controlling his pain and he has also now developed constipation, stating his last bowel movement was 4 days ago. Patient has had associated shortness of breath, cough, and fevers. Patient denies any vomiting. I have greeted and performed a rapid initial assessment of this patient. A comprehensive ED assessment and evaluation of the patient, analysis of test results, and completion of the medical decision making process will be conducted by additional ED providers. Review of systems: Positive for intractable pain, shortness of breath, cough, constipation, and fevers. Negative for vomiting. PHYSICAL EXAM GENERAL: Alert, interacts well. Cachectic. HEAD: Normocephalic, atraumatic. EYES: Pupils equal, round, and reactive to light. Extraocular movements intact. ENT: Oral mucosa moist, tongue midline. NECK: Full range of motion. Supple. Trachea midline. LUNGS: Expiratory wheezing throughout, no rales or rhonchi. No respiratory distress. CHEST: Palpable nodules across lower chest and rib cage. HEART: Tachycardic, regular rhythm. No murmurs, gallops, or rubs. ABDOMEN: Soft, non-tender. Non-distended. Bowel sounds present in all 4 quadrants. No guarding, rigidity, or rebound. EXTREMITIES: Moves all 4 extremities spontaneously. No edema, radial and dorsalis pedis pulses 2/4 bilaterally. No cyanosis. NEUROLOGICAL: Alert and oriented x3. Normal speech. PSYCH: Normal affect, normal mood. SKIN: Warm, dry, normal turgor. No rashes or lesions noted. (DONNA BUCKLEY) - Related Data Allergies/Adverse Reactions: No Known Allergies Allergy (Verified 04/02/18 10:58) Past Medical History - Social History Smoking Status: Current Every Day Smoker Chew tobacco use (# tins/day): No Frequency of alcohol use: None Drug Abuse: None Family History: Reviewed & Not Pertinent Patient has suicidal ideation: No Patient has homicidal ideation: No - Past Medical History Cardiac Medical History: Reports: Hx Coronary Artery Disease, Hx Heart Attack, Hx Hypertension Renal/ Medical History: Denies: Hx Peritoneal Dialysis Malignancy Medical History: Reports Hx Lung Cancer Psychiatric Medical History: Denies: Hx Depression Past Surgical History: Reports: Hx Open Heart Surgery - triple bypass - Immunizations Hx Pneumococcal Vaccination: 02/02/13 <DONNA BUCKLEY - Last Filed: 04/10/18 19:21> - Vital signs Vitals: Temp Pulse Resp BP Pulse Ox 97.8 F 108 H 24 H 117/76 95 04/10/18 16:43 04/10/18 16:43 04/10/18 16:43 04/10/18 16:43 04/10/18 16:43 Course - Laboratory Result Diagrams: 04/10/18 17:35 04/10/18 17:35 <DONNA BUCKLEY - Last Filed: 04/10/18 19:21> - Laboratory Result Diagrams: 04/10/18 17:35 04/10/18 17:35 <SANTOSH VARGAS - Last Filed: 04/10/18 20:03> - Re-evaluation Re-evalutation: 04/10/18 19:03 CBC shows leukocytosis of 16.7, anemia with hemoglobin 11.0 are somewhat prolonged at 1.22, chemistries show low protein and low albumin, cardiac enzymes negative, acute abdominal series does not show any signs of a large amount of stool in the colon. This is likely opioid induced constipation will be treated with enemas. Dr. Tunrer was kind enough to come to the emergency department and do a biopsy of the nodules that are suspicious for metastatic lung cancer, these have been sent for pathology. The case was discussed with Dr. Tong and Dr. Swan, Dr. Tong accepts the patient to his service in admission status for pain, opioid induced constipation. Patient was given albuterol breathing treatment. 04/10/18 20:03 (SANTOSH VARGAS) - Vital Signs Vital signs: Temp Pulse Resp BP Pulse Ox 97.8 F 108 H 24 H 117/76 95 04/10/18 16:43 04/10/18 16:43 04/10/18 16:43 04/10/18 16:43 04/10/18 16:43 - Laboratory Laboratory results interpreted by me: 04/10/18 04/10/18 04/10/18 17:35 17:35 17:35 WBC 16.7 H RBC 4.00 L Hgb 11.0 L Hct 32.8 L RDW 15.1 H Seg Neutrophils % 81.3 H Lymphocytes % 7.5 L Absolute Neutrophils 13.6 H Absolute Monocytes 1.7 H PT 16.0 H APTT 43.0 H Direct Bilirubin 0.6 H ALT 20 L Total Protein 6.2 L Albumin 3.1 L Discharge <DONNA BUCKLEY - Last Filed: 04/10/18 19:21> - Discharge Admitting Provider: [facility] Unit Admitted: Telemetry <SANTOSH VARGAS - Last Filed: 04/10/18 20:03> - Discharge Clinical Impression: Therapeutic opioid induced constipation, Intractable pain, Malignant neoplasm of upper lobe, left bronchus or lung Metastasis Qualifiers: Area of secondary neoplastic involvement: skin Qualified Code(s): 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
[2018-04-10] MEDS ORDERED: ALBUTEROL SULFATE 0.083% NEB 2.5 MG/3 ML AMPUL NEB ONE (17:14)
[2018-04-10 17:48] LABS: ABSOLUTE BASOPHILS # (AUTO) 0.1 10^3/uL (0.0-0.2); ABSOLUTE EOSINOPHILS # (AUTO) 0.1 10^3/uL (0.0-0.6); ABSOLUTE LYMPHOCYTES (AUTO) 1.3 10^3/uL (0.5-4.7); ABSOLUTE MONOCYTES (AUTO) 1.7 10^3/uL (0.1-1.4); ABSOLUTE NEUT (AUTO) 13.6 10^3/uL (1.7-8.2); BASOPHILS % (AUTO) 0.5 % (0-2); EOSINOPHILS % (AUTO) 0.7 % (0-6); HEMATOCRIT 32.8 % (37.9-51.0); LYMPHOCYTES % (AUTO) 7.5 % (13-45); MEAN CORPUSCULAR HEMOGLOBIN 27.6 pg (27.0-33.4); MEAN CORPUSCULAR HGB CONC 33.7 g/dL (32.0-36.0); MEAN CORPUSCULAR VOLUME 82 fl (80-97); PLATELET COUNT 382 10^3/uL (150-450); RED CELL DISTRIBUTION WIDTH 15.1 % (11.5-14.0); SEGMENTED NEUTROPHILS % (AUTO) 81.3 % (42-78); TOTAL CELLS COUNTED % (AUTO) 100 %; WHITE BLOOD COUNT 16.7 10^3/uL (4.0-10.5)
[2018-04-10 17:57] LABS: INTERNATIONAL RATION (INR) 1.22
[2018-04-10 18:10] LABS: ALANINE AMINOTRANSFERASE 20 U/L (21-72); ALBUMIN 3.1 g/dL (3.5-5.0); ALKALINE PHOSPHATASE 83 U/L (38-126); ANION GAP 14 (5-19); ASPARTATE AMINO TRANSFERASE 32 U/L (17-59); BILIRUBIN,DIRECT 0.6 mg/dL (0.0-0.4); BLOOD UREA NITROGEN 15 mg/dL (7-20); CARBON DIOXIDE 25 mmol/L (22-30); CHLORIDE 99 mmol/L (98-107); GLUCOSE 110 mg/dL (75-110); SODIUM 138.3 mmol/L (137-145); TOTAL PROTEIN 6.2 g/dL (6.3-8.2)
[2018-04-10] MEDS ORDERED: LIDOCAINE 1%/EPINEPHRINE INJ 20 ML VIAL INJ ONE (18:18)
[2018-04-10] MEDS ORDERED: SODIUM BICARBONATE 4.2% INJ (2.5 MEQ/5 ML) VIAL INJ ONE (18:18)
[2018-04-10] MEDS ORDERED: SODIUM BICARBONATE 8.4% INJ 50 MEQ/50 ML DISP.SYRIN IV ONE (18:35)
--- NOTE | 2018-04-10 18:49 | EKG REPORT ---
SEVERITY:- BORDERLINE ECG - SINUS TACHYCARDIA BORDERLINE T WAVE ABNORMALITIES : Confirmed by: Marti Robertson 10-Apr-2018 18:49:24
--- NOTE | 2018-04-10 19:01 | RADIOLOGY REPORT (SQ) ---
EXAM DESCRIPTION: ACUTE ABDOMEN SERIES COMPLETED DATE/TIME: 04/10/2018 6:23 pm REASON FOR STUDY: no BM x 4 days, cancer, r/o SBO COMPARISON: None. NUMBER OF VIEWS: Three views. TECHNIQUE: Frontal chest, supine abdomen and upright/ abdomen radiographic images acquired. LIMITATIONS: None. FINDINGS: CHEST: Large mass in the left upper hemithorax. No free air beneath the diaphragms. FREE AIR: None. No abnormal gas collections. BOWEL GAS PATTERN: Nonobstructive pattern. There is considerable stool in the ascending colon. CALCIFICATIONS: No suspicious calcifications. HARDWARE: None in the abdomen. SOFT TISSUES: No gross mass or suggestion of organomegaly. BONES: No acute fracture. No worrisome bone lesions. OTHER: No other significant finding. IMPRESSION: There is considerable stool in the ascending colon but not elsewhere in the bowel. The overall appearance of the bowel does not suggest bowel obstruction. Mass in the chest. TECHNICAL DOCUMENTATION: JOB ID: [id number] [employer]- All Rights Reserved Reading location - IP/workstation name: [email or web address]
[2018-04-10] MEDS ORDERED: MINERAL OIL 30 ML UDCUP PR ONE (19:05)
[2018-04-10] MEDS ORDERED: ALBUTEROL SULFATE 0.083% NEB 2.5 MG/3 ML AMPUL NEB PRN (19:27)
[2018-04-10] MEDS ORDERED: ONDANSETRON 4 MG TAB.RAPDIS PO PRN (19:27)
--- NOTE | 2018-04-10 20:05 | CONSULTATION REPORT E ---
Consultation Report NAME: STEPHAN BELTRAN : 1945 AGE: 73Y DATE: ED43 A TO: PENNY PLUMMER JR., M.D. FROM: KRUPA ROJAS M.D. Requesting Physician CHIEF COMPLAINT: Multiple masses on his chest. HISTORY OF PRESENT ILLNESS: The patient has multiple masses on his chest. He was recently here at the hospital just a couple of days ago, and is being evaluated for the possibility of metastatic lung cancer. I am consulted for evaluation for a biopsy of one of the masses. PAST MEDICAL HISTORY: He has the possibility of a stroke, and was on Aggrenox for this, and had not been taking it for a couple of days. He now comes back to the hospital with uncontrolled pain. Dr. Swan has recommended that a biopsy be performed of one of the subcutaneous masses of the chest area. Patient has multiple masses. Because the patient has a multitude of masses, we picked the one that would be the simplest for this patient and the likelihood that it may be outside the range of radiation, should he receive it. We decided to go with a left lower chest mass, which we felt would be the easiest for this patient to have removed. The rest of the history and physical are noncontributory. ALLERGIES: No allergies that were reported by his or the patient. PHYSICAL EXAMINATION: This patient has a multitude of masses scattered about the torso area. They were of various sizes, and we decided that the best would be one that was on his left lower lateral chest. This would, most likely, hopefully be out of the radiation zone, if he was going to get any kind of radiation to the lung mass. ASSESSMENT: Multiple subcutaneous masses in a patient with suspected history of lung cancer. PLAN: I was consulted to get a biopsy to help confirm the diagnosis for this patient. Again, we had multiple masses to choose from. The patient had an elevated PT and PTT, even though he was not taking his Aggrenox, and it was felt that we should pick a lesion that would be most banking representative, but also not an excessive amount of surgery, because of his elevated PT/PTT coags. We decided that the mass of the left lower chest would probably be the most reasonable to remove. It was a bit smaller than some of the others. It was well-circumscribed and it was on the ribs, and it was one of the masses that was recommended for a biopsy. This was discussed with the patient and the daughter, and they understand that this would be a good one to take, just in case he needed radiation. This would possibly be outside the zone of the radiation therapy. DICTATING PHYSICIAN: PENNY PLUMMER JR., M.D. [id number] PHY#: [id number] ID: [id number] JOB#: [id number] ACCT: [id number] cc:PENNY PLUMMER JR., M.D. >
--- NOTE | 2018-04-10 20:10 | ER Document Report ---
ED General - General TRAVEL OUTSIDE OF THE [place] IN LAST 30 DAYS: No <DONNA BUCKLEY - Last Filed: 04/10/18 20:07> <SANTOSH VARGAS - Last Filed: 04/10/18 20:58> - General Chief Complaint: Pain All Over Stated Complaint: BODY PAIN Time Seen by Provider: 04/10/18 17:05 Notes: Patient is a 73-year-old male who presents to the emergency department today with complaints of intractable pain. Patient was recently diagnosed with a mass in his chest with likely metastasis. Patient was discharged home on narcotic pain medication however he states this is not controlling his pain and he has also now developed constipation, stating his last bowel movement was 4 days ago. Patient has had associated shortness of breath, cough, and fevers. Patient denies any vomiting. (DONAN BUCKLEY) - Related Data Allergies/Adverse Reactions: No Known Allergies Allergy (Verified 04/02/18 10:58) Past Medical History - General Information source: Patient - Social History Smoking Status: Former Smoker Cigarette use (# per day): No Chew tobacco use (# tins/day): No Frequency of alcohol use: None Drug Abuse: None Lives with: Family Family History: Reviewed & Not Pertinent Patient has suicidal ideation: No Patient has homicidal ideation: No - Past Medical History Cardiac Medical History: Reports: Hx Coronary Artery Disease, Hx Heart Attack, Hx Hypertension Malignancy Medical History: Reports Hx Lung Cancer Psychiatric Medical History: Denies: Hx Depression Past Surgical History: Reports: Hx Open Heart Surgery - triple bypass - Immunizations Hx Pneumococcal Vaccination: 02/02/13 <DONNA BUCKLEY - Last Filed: 04/10/18 20:07> Review of Systems - Review of Systems Constitutional: See HPI, Fever, Other - pain EENT: No symptoms reported Cardiovascular: No symptoms reported Respiratory: See HPI, Cough, Short of breath Gastrointestinal: See HPI, Constipation. denies: Vomiting Genitourinary: No symptoms reported Male Genitourinary: No symptoms reported Musculoskeletal: No symptoms reported Skin: No symptoms reported Hematologic/Lymphatic: No symptoms reported Neurological/Psychological: No symptoms reported -: Yes All other systems reviewed and negative <DONNA BUCKLEY - Last Filed: 04/10/18 20:07> Physical Exam <DONNA BUCKLEY - Last Filed: 04/10/18 20:07> <SANTOSH VARGAS - Last Filed: 04/10/18 20:58> - Vital signs Vitals: Temp Pulse Resp BP Pulse Ox 97.8 F 108 H 24 H 117/76 95 04/10/18 16:43 04/10/18 16:43 04/10/18 16:43 04/10/18 16:43 04/10/18 16:43 - Notes Notes: PHYSICAL EXAM GENERAL: Alert, interacts well. Cachectic. HEAD: Normocephalic, atraumatic. EYES: Pupils equal, round, and reactive to light. Extraocular movements intact. ENT: Oral mucosa moist, tongue midline. NECK: Full range of motion. Supple. Trachea midline. LUNGS: Expiratory wheezing throughout, no rales or rhonchi. No respiratory distress. CHEST: Palpable nodules across lower chest and rib cage. HEART: Tachycardic, regular rhythm. No murmurs, gallops, or rubs. ABDOMEN: Soft, non-tender. Non-distended. Bowel sounds present in all 4 quadrants. No guarding, rigidity, or rebound. EXTREMITIES: Moves all 4 extremities spontaneously. No edema, radial and dorsalis pedis pulses 2/4 bilaterally. No cyanosis. NEUROLOGICAL: Alert and oriented x3. Normal speech. PSYCH: Normal affect, normal mood. SKIN: Warm, dry, normal turgor. No rashes or lesions noted. (DONNA BUCKLEY) Course - Laboratory Result Diagrams: 04/10/18 17:35 04/10/18 17:35 <DONNA BUCKLEY - Last Filed: 04/10/18 20:07> - Laboratory Result Diagrams: 04/10/18 17:35 04/10/18 17:35 <SANTOSH VARGAS - Last Filed: 04/10/18 20:58> - Re-evaluation Re-evalutation: 04/10/18 20:57 CBC shows leukocytosis of 16.7, anemia with hemoglobin 11.0, platelets normal, INR somewhat prolonged at 1.22, chemistries grossly unremarkable, they do show low protein and low albumin consistent with his cachexia and his metastatic cancer presentation. Acute abdominal series was ordered and does not show any signs of obstruction but there is a large amount of stool. This is likely due to opioid-induced constipation. Patient states he has had this before. Patient will be given an enema for comfort. EKG is nonischemic. Discussed case with Dr. Swan and Dr. Tong, they both agree that he needs to be admitted for pain control, they would also like to have a biopsy performed of the nodules which were shown to be metabolically active on PET scan recently. I did contact Dr. Dinh regarding this and he kindly came to the emergency department and performed the biopsy of nodules here. These will be sent for pathology. 04/10/18 20:58 EKG shows sinus tachycardia at a rate of 101, no ST segment elevations or depressions, no T-wave inversions, there is nonspecific T-wave flattening in aVL , rapid R-wave progression per my interpretation. (SANTOSH VARGAS) - Vital Signs Vital signs: Temp Pulse Resp BP Pulse Ox 97.8 F 108 H 24 H 117/76 95 04/10/18 16:43 04/10/18 16:43 04/10/18 16:43 04/10/18 16:43 04/10/18 16:43 - Laboratory Laboratory results interpreted by me: 04/10/18 04/10/18 04/10/18 17:35 17:35 17:35 WBC 16.7 H RBC 4.00 L Hgb 11.0 L Hct 32.8 L RDW 15.1 H Seg Neutrophils % 81.3 H Lymphocytes % 7.5 L Absolute Neutrophils 13.6 H Absolute Monocytes 1.7 H PT 16.0 H APTT 43.0 H Direct Bilirubin 0.6 H ALT 20 L Total Protein 6.2 L Albumin 3.1 L Discharge <DONNA BUCKLEY - Last Filed: 04/10/18 20:07> - Discharge Admitting Provider: [facility] Unit Admitted: Telemetry <SANTOSH VARGAS - Last Filed: 04/10/18 20:58> - Discharge Clinical Impression: Therapeutic opioid induced constipation, Intractable pain, Malignant neoplasm of upper lobe, left bronchus or lung Metastasis Qualifiers: Area of secondary neoplastic involvement: skin Qualified Code(s): 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 (SANTOSH VARGAS)
[2018-04-10] MEDS: IPRATROPIUM/ALBUTEROL 0.5-2.5 MG/3 ML AMPUL NEB SCH (20:48)
[2018-04-10] MEDS: OXYCODONE-ACETAMINOPHEN 5-325 MG TABLET PO PRN (20:49)
[2018-04-10] MEDS ORDERED: MINERAL OIL 30 ML UDCUP ONE (23:20)
[2018-04-10] MEDS ORDERED: CEFEPIME 1 GM/D5W RTU 1 GM/50 ML RTUPB IV ONE (23:20)
[2018-04-10] MEDS: FAMOTIDINE 20 MG TABLET PO SCH (23:32)
[2018-04-10] MEDS: CEFEPIME 1 GM/D5W RTU 1 GM/50 ML RTUPB IV SCH (23:56)
[2018-04-11 00:19] LABS: APPEARANCE,URINE SLIGHTLY-CLOUDY; BILIRUBIN,URINE NEGATIVE (NEGATIVE); COLOR,URINE YELLOW; GLUCOSE, URINE NEGATIVE (NEGATIVE); KETONES,URINE TRACE mg/dL (NEGATIVE); LEUKOCYTE ESTERASE,URINE NEGATIVE (NEGATIVE); NITRITE,URINE NEGATIVE (NEGATIVE); PROTEIN,URINE NEGATIVE (NEGATIVE); URINE SPECIFIC GRAVITY 1.017; UROBILINOGEN,URINE NEGATIVE mg/dL (<2.0)
--- NOTE | 2018-04-11 00:55 | OPERATIVE REPORT E ---
Operative Report NAME: STEPHAN BELTRAN : 1945 AGE: 73Y DATE OF SURGERY: 04/10/2018 ROOM: 407 PREOPERATIVE DIAGNOSIS: MULTIPLE MASSES OF THE TORSO AND EXTREMITIES. POSTOPERATIVE DIAGNOSIS: MULTIPLE MASSES OF THE TORSO AND EXTREMITIES. OPERATION: Excision of masses of the left lower lateral chest wall for diagnostic purposes. SURGEON: PENNY PLUMMER JR., M.D. PROCEDURE AND FINDINGS IN DETAIL: Patient was prepped with a Betadine solution and was draped in a sterile aseptic manner. Patient had an outline over the mass that we had discussed with the patient and the daughter. This mass, I think, would be customer retention representative of the other masses and was well circumscribed on palpation and it was on the lower chest area and possibly outside the zone of radiation, should he need radiation therapy, so we went ahead and outlined the area that we had chosen. Again, we prepped with a Betadine and draped him in a sterile aseptic manner, we anesthetized with 1% Lidocaine with epinephrine. We then made the incision and we used the bipolar for hemostasis, dissected down into subcutaneous tissue and dissected the mass 360 degrees and removed it. This was then placed in formalin and was sent to pathology. Hemostasis was again achieved with the bipolar. We cleaned the wound with Betadine. We closed using 4-0 Vicryl for the subcutaneous, deep dermis, and the skin was closed with 4-0 simple interrupted Prolene sutures. Tincture of Benzoin and Steri-Strips were applied. Light pressure dressing was applied. Patient tolerated this well with no complications. DICTATING PHYSICIAN: PENNY PLUMMER JR., M.D. [id number] Y#: [id number] ID: [id number] JOB#: [id number] ACCT: [id number] cc:PENNY PLUMMER JR., M.D. >
[2018-04-11] MEDS: OXYCODONE-ACETAMINOPHEN 5-325 MG TABLET PO PRN (02:53)
[2018-04-11 05:00] LABS: ABSOLUTE EOSINOPHILS # (AUTO) 0.1 10^3/uL (0.0-0.6); ABSOLUTE LYMPHOCYTES (AUTO) 1.2 10^3/uL (0.5-4.7); ABSOLUTE MONOCYTES (AUTO) 1.4 10^3/uL (0.1-1.4); ABSOLUTE NEUT (AUTO) 10.6 10^3/uL (1.7-8.2); BASOPHILS % (AUTO) 0.3 % (0-2); EOSINOPHILS % (AUTO) 0.7 % (0-6); HEMATOCRIT 31.6 % (37.9-51.0); HEMOGLOBIN 10.6 g/dL (13.5-17.0); LYMPHOCYTES % (AUTO) 9.3 % (13-45); MEAN CORPUSCULAR HEMOGLOBIN 27.2 pg (27.0-33.4); MEAN CORPUSCULAR HGB CONC 33.6 g/dL (32.0-36.0); MEAN CORPUSCULAR VOLUME 81 fl (80-97); MONOCYTES % (AUTO) 10.4 % (3-13); PLATELET COUNT 272 10^3/uL (150-450); RED BLOOD COUNT 3.89 10^6/uL (4.35-5.55); RED CELL DISTRIBUTION WIDTH 15.1 % (11.5-14.0); SEGMENTED NEUTROPHILS % (AUTO) 79.3 % (42-78); TOTAL CELLS COUNTED % (AUTO) 100 %; WHITE BLOOD COUNT 13.4 10^3/uL (4.0-10.5)
[2018-04-11 05:48] LABS: ANION GAP 13 (5-19); BLOOD UREA NITROGEN 15 mg/dL (7-20); CALCIUM 8.6 mg/dL (8.4-10.2); CARBON DIOXIDE 23 mmol/L (22-30); CHLORIDE 101 mmol/L (98-107); GLUCOSE 93 mg/dL (75-110); SODIUM 136.9 mmol/L (137-145)
[2018-04-11] MEDS: IPRATROPIUM/ALBUTEROL 0.5-2.5 MG/3 ML AMPUL NEB SCH ×3 (08:31→20:35)
--- NOTE | 2018-04-11 08:32 | PDOC CONSULTATION ---
Consultation Consult Date: 04/11/18 Attending physician:: KRUPA TONG Consult reason:: Well-known to our oncology clinic, with lung mass, mediastinal adenopathy multiple skin nodules, severe pain and weakness History of Present Illness Admission Date/PCP: 04/10/18 19:15 SADIA ROUSSEAU MD Patient complains of: Pain, weakness, constipation History of Present Illness: STEPHAN BELTRAN is a 73 year old male with known history of large lung mass, mediastinal adenopathy, multiple subcutaneous nodules, retroperitoneal nodules, perineal nodules. Recently has had a lot of pain, especially in the right inguinal area, abdominal area. Recently we did a PET/CT which indicated multiple areas of uptake in the lung mass, mediastinal adenopathy, subcutaneous nodules. Yesterday his daughter called her office noting that he was very weak , could not get up, having a lot of pain, having nausea and vomiting. We instructed them to take him to the ED, I discussed this case with his PCP Dr. Tong, ultimately we decided on admission for pain control, IV hydration and further discussion about next steps of care. Of note, given the fact that the subcutaneous nodules were PET positive we did get Dr. Dinh to remove 1 of those nodules, that was done yesterday and that pathology is pending. This is the first pathology that we have obtained. This morning he was quite constipated and requests an enema. He had this. Past Medical History Cardiac Medical History: Reports: Coronary Artery Disease, Myocardial Infarction , Hypertension Neurological Medical History: Reports: Ischemic CVA Malignancy Medical History: Reports: Lung Cancer Psychiatric Medical History: Denies: Depression Past Surgical History Past Surgical History: Reports: Other - Removal of skin nodule Social History Information Source: Patient Lives with: Family Smoking Status: Former Smoker Cigarettes Packs Per Day: 1 Number of Years Smokin Frequency of Alcohol Use: None Hx Recreational Drug Use: No Hx Prescription Drug Abuse: No - Advance Directive Resuscitation Status: Full Code Family History Family History: Reviewed & Not Pertinent Parental Family History Reviewed: Yes Children Family History Reviewed: Yes Sibling(s) Family History Reviewed.: Yes Medication/Allergy Home Medications: Hydrocodone/Acetaminophen [[place] 10-325 mg Tablet] 1 tab PO Q4HP PRN tablet Levofloxacin [Levaquin 750 mg Tablet] 750 mg PO DAILY@1900 #10 tablet 04/07/18 Albuterol Sulfate [Proair Hfa Inhalation Aerosol 8.5 gm Mdi] 2 puff IH Q3HP PRN 04/10/18 Allergies/Adverse Reactions: No Known Allergies Allergy (Verified 04/10/18 21:08) Review of Systems Constitutional: PRESENT: anorexia, fatigue, weakness, weight loss Cardiovascular: PRESENT: dyspnea on exertion Respiratory: PRESENT: cough, dyspnea, sputum Gastrointestinal: PRESENT: abdominal pain, bloating, constipation Musculoskeletal: PRESENT: back pain Neurological: ABSENT: abnormal gait, abnormal speech, confusion, dizziness, focal weakness, syncope Psychiatric: PRESENT: depression Physical Exam Vital Signs: Temp Pulse Resp BP Pulse Ox 99.2 F 86 15 156/78 H 95 04/11/18 03:29 04/11/18 03:29 04/11/18 03:29 04/11/18 03:29 04/11/18 03:29 Intake & Output 04/10/18 04/11/18 04/12/18 06:59 06:59 06:59 Intake Total 650 Output Total 450 Balance 200 Weight 63.1 kg General appearance: PRESENT: no acute distress, well-developed, well-nourished Head exam: PRESENT: atraumatic, normocephalic Eye exam: PRESENT: conjunctiva pink, EOMI, PERRLA. ABSENT: scleral icterus Ear exam: PRESENT: normal external ear exam Mouth exam: PRESENT: moist, tongue midline Neck exam: ABSENT: carotid bruit, JVD, lymphadenopathy, thyromegaly Respiratory exam: PRESENT: clear to auscultation tammie. ABSENT: rales, rhonchi, wheezes Cardiovascular exam: PRESENT: RRR. ABSENT: diastolic murmur, rubs, systolic murmur Pulses: PRESENT: normal dorsalis pedis pul Vascular exam: PRESENT: normal capillary refill GI/Abdominal exam: PRESENT: normal bowel sounds, soft. ABSENT: distended, guarding, mass, organolmegaly, rebound, tenderness Rectal exam: PRESENT: deferred Extremities exam: PRESENT: full ROM. ABSENT: calf tenderness, clubbing, pedal edema Neurological exam: PRESENT: alert, awake, oriented to person, oriented to place , oriented to time, oriented to situation, CN II-XII grossly intact. ABSENT: motor sensory deficit Psychiatric exam: PRESENT: appropriate affect, normal mood. ABSENT: homicidal ideation, suicidal ideation Skin exam: PRESENT: dry, intact, warm. ABSENT: cyanosis, rash Results Laboratory Results: 04/11/18 04:05 04/11/18 04:45 04/10/18 04/11/18 04/11/18 23:55 04:05 04:45 WBC 13.4 H RBC 3.89 L Hgb 10.6 L Hct 31.6 L MCV 81 MCH 27.2 MCHC 33.6 RDW 15.1 H Plt Count 272 Seg Neutrophils % 79.3 H Lymphocytes % 9.3 L Monocytes % 10.4 Eosinophils % 0.7 Basophils % 0.3 Absolute Neutrophils 10.6 H Absolute Lymphocytes 1.2 Absolute Monocytes 1.4 Absolute Eosinophils 0.1 Absolute Basophils 0.0 Sodium 136.9 L Potassium 4.0 Chloride 101 Carbon Dioxide 23 Anion Gap 13 BUN 15 Creatinine 0.93 Est GFR ( Amer) > 60 Est GFR (Non-Af Amer) > 60 Glucose 93 Calcium 8.6 Urine Color YELLOW Urine Appearance SLIGHTLY-CLOUDY Urine pH 6.0 Ur Specific [place] 1.017 Urine Protein NEGATIVE Urine Glucose (UA) NEGATIVE Urine Ketones TRACE H Urine Blood NEGATIVE Urine Nitrite NEGATIVE Ur Leukocyte Esterase NEGATIVE Urine WBC (Auto) 1 Urine RBC (Auto) 1 Impressions: Acute Abdomen Series 04/10/18 17:13 IMPRESSION: There is considerable stool in the ascending colon but not elsewhere in the bowel. The overall appearance of the bowel does not suggest bowel obstruction. Mass in the chest. Assessment & Plan - Diagnosis (1) Malignant neoplasm of upper lobe, left bronchus or lung Is this a current diagnosis for this admission?: Yes Plan: Likely going to be stage IV lung ca, s/p skin bx, this is pending. Will follow. Discussed with pt and family, they would like to pursue further dx and tx if possible. (2) Intractable pain Is this a current diagnosis for this admission?: Yes Plan: 2nd malignancy, will inc oxycodone, give dilaudid IV if oral does not work, start fentanyl patch. (3) Malnutrition due to starvation Is this a current diagnosis for this admission?: Yes Plan: 2nd to malignancy, wt loss noted, start marinol for appetite stimulation, cont IVF (4) Therapeutic opioid induced constipation Is this a current diagnosis for this admission?: Yes Plan: enema give, lactulose ordered, may need another enema - Time Time Spent: Greater than 70 Minutes - Inpatient Certification Based on my medical assessment, after consideration of the patient's comorbidities, presenting symptoms, or acuity I expect that the services needed warrant INPATIENT care.: Yes I certify that my determination is in accordance with my understanding of Medicare's requirements for reasonable and necessary INPATIENT services [42 CFR 412.3e].: Yes Medical Necessity: Need For IV Fluids, Need for Pain Control, Need for Surgery, Risk of Complication if Not Cared For in Hospital
[2018-04-11] MEDS ORDERED: HYDROMORPHONE HCL INJ/PF 2 MG/ML AMPULE IV PRN (09:08)
[2018-04-11] MEDS ORDERED: FENTANYL 12 MCG/HR PATCH.TD72 TD SCH (10:00)
[2018-04-11] MEDS ORDERED: LACTULOSE SYRUP 20 GM/30 ML UDCUP PO ONE (10:00)
--- NOTE | 2018-04-11 10:29 | PDOC H&P ---
History of Present Illness Admission Date/PCP: 04/10/18 19:15 SADIA ROUSSEAU MD Patient complains of: Severe pain and whezzing History of Present Illness: STEPHAN BELTRAN is a 73 year old male This is a 73-year-old male with the recently admitted several times in the hospital first is for the lung cancer's with the metastatic disease and recently have a acute CVA events and also history of the coronary artery diseaseHave a PET scan done yesterday which is positive for malignancy and also have a several subcutaneous skin nodules which is probablyFrom the lung cancersNot the tissue biopsies done Patients called the oncology Dr. Valdez and have a severe pain all over the body currently on a pain medications but not well controlled And suggest to come to the emergency department for further evaluation and for pain management When I saw the patient in the emergency departments patient's was alert awake oriented patient's recently lost more weight and the pain is not well controlled with the pain medications also complains of constipations Patient have a PET scan done yesterday with suggest that several retroperitoneal node and positive SUVFor the malignancy Very extensive discussions with the patient and the daughter yesterday regarding all the patient's current status of the lung cancers and her daughters pretty much wants more comfort care with some pain medications and they were discussed with the oncology for further treatment options As per discussed with the ER physicians and consult the plastic surgery for the biopsy of the subcutaneous nodules Past Medical History Cardiac Medical History: Reports: Coronary Artery Disease, Myocardial Infarction , Hypertension Pulmonary Medical History: Reports: Chronic Obstructive Pulmonary Disease (COPD) Neurological Medical History: Reports: Ischemic CVA Malignancy Medical History: Reports: Lung Cancer Psychiatric Medical History: Denies: Depression Past Surgical History Past Surgical History: Reports: Coronary Artery Bypass Graft, Other - Removal of skin nodule Social History Lives with: Family Smoking Status: Former Smoker Cigarettes Packs Per Day: 1 Number of Years Smokin Frequency of Alcohol Use: None Hx Recreational Drug Use: No Hx Prescription Drug Abuse: No - Advance Directive Resuscitation Status: Full Code Family History Family History: Reviewed & Not Pertinent Parental Family History Reviewed: Yes Children Family History Reviewed: Yes Sibling(s) Family History Reviewed.: Yes Medication/Allergy Home Medications: Hydrocodone/Acetaminophen [[place] 10-325 mg Tablet] 1 tab PO Q4HP PRN tablet Levofloxacin [Levaquin 750 mg Tablet] 750 mg PO DAILY@1900 #10 tablet 04/07/18 Albuterol Sulfate [Proair Hfa Inhalation Aerosol 8.5 gm Mdi] 2 puff IH Q3HP PRN 04/10/18 Allergies/Adverse Reactions: No Known Allergies Allergy (Verified 04/10/18 21:08) Review of Systems Constitutional: PRESENT: anorexia, fatigue, weakness, weight loss. ABSENT: chills, fever(s), headache(s), weight gain Eyes: ABSENT: visual disturbances Ears: ABSENT: hearing changes Cardiovascular: ABSENT: chest pain, dyspnea on exertion, edema, orthropnea, palpitations Respiratory: PRESENT: cough, dyspnea. ABSENT: hemoptysis Gastrointestinal: ABSENT: abdominal pain, constipation, diarrhea, hematemesis, hematochezia, nausea, vomiting Genitourinary: ABSENT: dysuria, hematuria Musculoskeletal: ABSENT: joint swelling Integumentary: ABSENT: rash, wounds Neurological: PRESENT: confusion. ABSENT: abnormal gait, abnormal speech, dizziness, focal weakness, syncope Psychiatric: ABSENT: anxiety, depression, homidical ideation, suicidal ideation Endocrine: ABSENT: cold intolerance, heat intolerance, menstrual abnormalities, polydipsia, polyuria Hematologic/Lymphatic: ABSENT: easy bleeding, easy bruising, lymphadenopathy Physical Exam Vital Signs: Temp Pulse Resp BP Pulse Ox 98.0 F 97 18 140/82 H 90 L 04/11/18 08:07 04/11/18 08:31 04/11/18 08:31 04/11/18 08:07 04/11/18 08:31 Intake & Output 04/10/18 04/11/18 04/12/18 06:59 06:59 06:59 Intake Total 650 Output Total 450 Balance 200 Weight 63.1 kg General appearance: PRESENT: no acute distress, thin Head exam: PRESENT: atraumatic, normocephalic Eye exam: PRESENT: conjunctiva pink, EOMI, PERRLA. ABSENT: scleral icterus Ear exam: PRESENT: normal external ear exam Mouth exam: PRESENT: moist, tongue midline Neck exam: PRESENT: full ROM. ABSENT: carotid bruit, JVD, lymphadenopathy, thyromegaly Respiratory exam: PRESENT: clear to auscultation tammie Cardiovascular exam: PRESENT: RRR. ABSENT: diastolic murmur, rubs, systolic murmur Pulses: PRESENT: normal dorsalis pedis pul, +2 pedal pulses bilateral Vascular exam: PRESENT: normal capillary refill GI/Abdominal exam: PRESENT: normal bowel sounds, soft. ABSENT: distended, guarding, mass, organolmegaly, rebound, tenderness Rectal exam: PRESENT: deferred Extremities exam: ABSENT: pedal edema Neurological exam: PRESENT: alert, awake, oriented to person, oriented to place , oriented to time, oriented to situation, CN II-XII grossly intact. ABSENT: motor sensory deficit Psychiatric exam: PRESENT: appropriate affect, normal mood. ABSENT: homicidal ideation, suicidal ideation Skin exam: PRESENT: dry, intact, warm. ABSENT: cyanosis, rash Results Laboratory Results: 04/11/18 04:05 04/11/18 04:45 04/10/18 04/11/18 04/11/18 23:55 04:05 04:45 WBC 13.4 H RBC 3.89 L Hgb 10.6 L Hct 31.6 L MCV 81 MCH 27.2 MCHC 33.6 RDW 15.1 H Plt Count 272 Seg Neutrophils % 79.3 H Lymphocytes % 9.3 L Monocytes % 10.4 Eosinophils % 0.7 Basophils % 0.3 Absolute Neutrophils 10.6 H Absolute Lymphocytes 1.2 Absolute Monocytes 1.4 Absolute Eosinophils 0.1 Absolute Basophils 0.0 Sodium 136.9 L Potassium 4.0 Chloride 101 Carbon Dioxide 23 Anion Gap 13 BUN 15 Creatinine 0.93 Est GFR ( Amer) > 60 Est GFR (Non-Af Amer) > 60 Glucose 93 Calcium 8.6 Urine Color YELLOW Urine Appearance SLIGHTLY-CLOUDY Urine pH 6.0 Ur Specific [place] 1.017 Urine Protein NEGATIVE Urine Glucose (UA) NEGATIVE Urine Ketones TRACE H Urine Blood NEGATIVE Urine Nitrite NEGATIVE Ur Leukocyte Esterase NEGATIVE Urine WBC (Auto) 1 Urine RBC (Auto) 1 Impressions: Acute Abdomen Series 04/10/18 17:13 IMPRESSION: There is considerable stool in the ascending colon but not elsewhere in the bowel. The overall appearance of the bowel does not suggest bowel obstruction. Mass in the chest. Assessment & Plan - Diagnosis (1) Intractable pain Is this a current diagnosis for this admission?: Yes Plan: Most likely due to the metastatic disease we will adjust the pain medication and follow with oncology (2) Malignant neoplasm of upper lobe, left bronchus or lung Is this a current diagnosis for this admission?: Yes Plan: Patients have a positive PET scan's and have a subcutaneous nodule biopsy was done will wait for the biopsy report and follow with oncology (3) Malnutrition due to starvation Is this a current diagnosis for this admission?: Yes Plan: Continue some high-protein diets due to the recent malignancy (4) Therapeutic opioid induced constipation Is this a current diagnosis for this admission?: Yes Plan: We will continues the patient on MiraLAX and Colace and add the lactulose (5) Cerebrovascular accident Qualifiers: CVA mechanism: unspecified Qualified Code(s): I63.9 - Cerebral infarction, unspecified Is this a current diagnosis for this admission?: Yes Plan: Continues to current medications (6) Postobstructive pneumonia Is this a current diagnosis for this admission?: Yes Plan: Continues to IV antibiotic (7) Right inguinal hernia Is this a current diagnosis for this admission?: Yes Plan: Currently all stable and reducible (8) Weakness Is this a current diagnosis for this admission?: Yes (9) Coronary artery disease Is this a current diagnosis for this admission?: Yes Plan: Currently all stable - Time Time Spent: 50 to 70 Minutes Medications reviewed and adjusted accordingly: Yes Anticipated discharge: Home Within: Other - Inpatient Certification Medical Necessity: Need Close Monitoring Due to Risk of Patient Decompensation, Need for IV Antibiotics 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
[2018-04-11] MEDS: DRONABINOL 2.5 MG CAPSULE PO SCH (11:54)
[2018-04-11] MEDS: POLYETHYLENE GLYCOL 3350 POWDER 17 GM/1 PACKET PO SCH (11:54)
[2018-04-11] MEDS: CEFEPIME 1 GM/D5W RTU 1 GM/50 ML RTUPB IV SCH ×2 (11:55→21:55)
[2018-04-11] MEDS: OXYCODONE HCL IR 5 MG TABLET PO PRN ×3 (11:55→23:33)
[2018-04-11] MEDS: FAMOTIDINE 20 MG TABLET PO SCH ×2 (11:56→21:55)
[2018-04-11] MEDS: DOCUSATE SODIUM 100 MG CAPSULE PO SCH ×2 (11:56→17:56)
[2018-04-11] MEDS: ENOXAPARIN SODIUM INJ 40 MG/0.4 ML DISP.SYRIN SUBCUT SCH (11:57)
[2018-04-11] MEDS: ACETAMINOPHEN 325 MG TABLET PO PRN (23:33)
[2018-04-11] MEDS ORDERED: MINERAL OIL 30 ML UDCUP PR ONE (23:45)
[2018-04-12] MEDS ORDERED: MINERAL OIL 30 ML UDCUP ONE (01:10)
[2018-04-12 06:38] LABS: ABSOLUTE BASOPHILS # (AUTO) 0.1 10^3/uL (0.0-0.2); ABSOLUTE EOSINOPHILS # (AUTO) 0.1 10^3/uL (0.0-0.6); ABSOLUTE LYMPHOCYTES (AUTO) 1.2 10^3/uL (0.5-4.7); ABSOLUTE MONOCYTES (AUTO) 1.2 10^3/uL (0.1-1.4); ABSOLUTE NEUT (AUTO) 9.6 10^3/uL (1.7-8.2); BASOPHILS % (AUTO) 0.5 % (0-2); EOSINOPHILS % (AUTO) 0.8 % (0-6); HEMATOCRIT 30.5 % (37.9-51.0); HEMOGLOBIN 10.3 g/dL (13.5-17.0); LYMPHOCYTES % (AUTO) 9.8 % (13-45); MEAN CORPUSCULAR HEMOGLOBIN 27.5 pg (27.0-33.4); MEAN CORPUSCULAR HGB CONC 33.6 g/dL (32.0-36.0); MEAN CORPUSCULAR VOLUME 82 fl (80-97); MONOCYTES % (AUTO) 9.9 % (3-13); PLATELET COUNT 326 10^3/uL (150-450); RED BLOOD COUNT 3.73 10^6/uL (4.35-5.55); RED CELL DISTRIBUTION WIDTH 15.1 % (11.5-14.0); TOTAL CELLS COUNTED % (AUTO) 100 %; WHITE BLOOD COUNT 12.2 10^3/uL (4.0-10.5)
[2018-04-12 06:55] LABS: ANION GAP 13 (5-19); BLOOD UREA NITROGEN 17 mg/dL (7-20); CALCIUM 8.7 mg/dL (8.4-10.2); CARBON DIOXIDE 25 mmol/L (22-30); CHLORIDE 99 mmol/L (98-107); GLUCOSE 97 mg/dL (75-110); SODIUM 136.5 mmol/L (137-145)
[2018-04-12] MEDS: DRONABINOL 2.5 MG CAPSULE PO SCH ×2 (08:23→12:02)
--- NOTE | 2018-04-12 08:46 | PDOC PROGRESS REPORT ---
Subjective Progress Note for:: 04/12/18 Subjective:: Still has a lot of discomfort if he moves his right lower extremity, especially in the inguinal area. He had a small BM with another enema, today we discussed the use of amitaza. Reason For Visit: LUNG CANCER,PNEUMONIA Physical Exam Vital Signs: Temp Pulse Resp BP Pulse Ox 97.5 F 76 16 148/78 H 93 04/12/18 03:11 04/12/18 07:00 04/12/18 03:11 04/12/18 03:11 04/12/18 03:11 Intake & Output 04/11/18 04/12/18 04/13/18 06:59 06:59 06:59 Intake Total 650 1121 Output Total 450 Balance 200 1121 Weight 63.1 kg 63.2 kg General appearance: PRESENT: no acute distress, well-developed, well-nourished Head exam: PRESENT: atraumatic, normocephalic Eye exam: PRESENT: conjunctiva pink, EOMI, PERRLA. ABSENT: scleral icterus Ear exam: PRESENT: normal external ear exam Mouth exam: PRESENT: moist, tongue midline Neck exam: ABSENT: carotid bruit, JVD, lymphadenopathy, thyromegaly Respiratory exam: PRESENT: clear to auscultation tammie. ABSENT: rales, rhonchi, wheezes Cardiovascular exam: PRESENT: RRR. ABSENT: diastolic murmur, rubs, systolic murmur Pulses: PRESENT: normal dorsalis pedis pul Vascular exam: PRESENT: normal capillary refill GI/Abdominal exam: PRESENT: normal bowel sounds, soft. ABSENT: distended, guarding, mass, organolmegaly, rebound, tenderness Rectal exam: PRESENT: deferred Extremities exam: PRESENT: full ROM. ABSENT: calf tenderness, clubbing, pedal edema Neurological exam: PRESENT: alert, awake, oriented to person, oriented to place , oriented to time, oriented to situation, CN II-XII grossly intact. ABSENT: motor sensory deficit Psychiatric exam: PRESENT: appropriate affect, normal mood. ABSENT: homicidal ideation, suicidal ideation Skin exam: PRESENT: dry, intact, warm. ABSENT: cyanosis, rash Results Laboratory Results: 04/12/18 05:57 04/12/18 05:57 04/12/18 04/12/18 05:57 05:57 WBC 12.2 H RBC 3.73 L Hgb 10.3 L Hct 30.5 L MCV 82 MCH 27.5 MCHC 33.6 RDW 15.1 H Plt Count 326 Seg Neutrophils % 79.0 H Lymphocytes % 9.8 L Monocytes % 9.9 Eosinophils % 0.8 Basophils % 0.5 Absolute Neutrophils 9.6 H Absolute Lymphocytes 1.2 Absolute Monocytes 1.2 Absolute Eosinophils 0.1 Absolute Basophils 0.1 Sodium 136.5 L Potassium 4.0 Chloride 99 Carbon Dioxide 25 Anion Gap 13 BUN 17 Creatinine 0.95 Est GFR ( Amer) > 60 Est GFR (Non-Af Amer) > 60 Glucose 97 Calcium 8.7 Impressions: Acute Abdomen Series 04/10/18 17:13 IMPRESSION: There is considerable stool in the ascending colon but not elsewhere in the bowel. The overall appearance of the bowel does not suggest bowel obstruction. Mass in the chest. Assessment & Plan - Diagnosis (1) Malignant neoplasm of upper lobe, left bronchus or lung Is this a current diagnosis for this admission?: Yes Plan: Await final diagnosis, further recommendations based on that (2) Intractable pain Is this a current diagnosis for this admission?: Yes Plan: Severe, fentanyl patch added, continue with current regimen (3) Malnutrition due to starvation Is this a current diagnosis for this admission?: Yes Plan: Added Ensure to his diet (4) Therapeutic opioid induced constipation Is this a current diagnosis for this admission?: Yes Plan: Added amitaza to his regimen - Time Time Spent with patient: 35 or more minutes - Inpatient Certification Based on my medical assessment, after consideration of the patient's comorbidities, presenting symptoms, or acuity I expect that the services needed warrant INPATIENT care.: Yes I certify that my determination is in accordance with my understanding of Medicare's requirements for reasonable and necessary INPATIENT services [42 CFR 412.3e].: Yes Medical Necessity: Need For IV Fluids, Need for Pain Control
[2018-04-12] MEDS: IPRATROPIUM/ALBUTEROL 0.5-2.5 MG/3 ML AMPUL NEB SCH ×3 (09:24→19:50)
[2018-04-12] MEDS: POLYETHYLENE GLYCOL 3350 POWDER 17 GM/1 PACKET PO SCH (09:56)
[2018-04-12] MEDS: ENOXAPARIN SODIUM INJ 40 MG/0.4 ML DISP.SYRIN SUBCUT SCH (09:56)
[2018-04-12] MEDS: FAMOTIDINE 20 MG TABLET PO SCH ×2 (09:56→21:15)
[2018-04-12] MEDS: CEFEPIME 1 GM/D5W RTU 1 GM/50 ML RTUPB IV SCH ×2 (09:57→21:14)
[2018-04-12] MEDS: LUBIPROSTONE 24 MCG CAPSULE PO SCH ×2 (09:57→18:52)
[2018-04-12] MEDS: DOCUSATE SODIUM 100 MG CAPSULE PO SCH ×2 (10:02→18:52)
--- NOTE | 2018-04-12 15:44 | PDOC PROGRESS REPORT ---
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 ABSENT: scleral icterus Ear exam: PRESENT: normal external ear exam Mouth exam: PRESENT: moist, tongue midline Neck exam: PRESENT: full ROM. ABSENT: carotid bruit, JVD, lymphadenopathy, thyromegaly Respiratory exam: PRESENT: clear to auscultation tammie Cardiovascular exam: PRESENT: RRR. ABSENT: diastolic murmur, rubs, systolic murmur Pulses: PRESENT: normal dorsalis pedis pul, +2 pedal pulses bilateral Vascular exam: PRESENT: normal capillary refill GI/Abdominal exam: PRESENT: normal bowel sounds, soft. ABSENT: distended, guarding, mass, organolmegaly, rebound, tenderness Additonal comments: Reducible right inguinal hernia is present Rectal exam: PRESENT: deferred Neurological exam: PRESENT: alert, awake, oriented to person, oriented to place , oriented to time, oriented to situation, CN II-XII grossly intact. ABSENT: motor sensory deficit Psychiatric exam: PRESENT: appropriate affect, normal mood. ABSENT: homicidal ideation, suicidal ideation Skin exam: PRESENT: dry, intact, warm. ABSENT: cyanosis, rash Results Laboratory Results: 04/12/18 05:57 04/12/18 05:57 04/12/18 04/12/18 05:57 05:57 WBC 12.2 H RBC 3.73 L Hgb 10.3 L Hct 30.5 L MCV 82 MCH 27.5 MCHC 33.6 RDW 15.1 H Plt Count 326 Seg Neutrophils % 79.0 H Lymphocytes % 9.8 L Monocytes % 9.9 Eosinophils % 0.8 Basophils % 0.5 Absolute Neutrophils 9.6 H Absolute Lymphocytes 1.2 Absolute Monocytes 1.2 Absolute Eosinophils 0.1 Absolute Basophils 0.1 Sodium 136.5 L Potassium 4.0 Chloride 99 Carbon Dioxide 25 Anion Gap 13 BUN 17 Creatinine 0.95 Est GFR ( Amer) > 60 Est GFR (Non-Af Amer) > 60 Glucose 97 Calcium 8.7 Impressions: Acute Abdomen Series 04/10/18 17:13 IMPRESSION: There is considerable stool in the ascending colon but not elsewhere in the bowel. The overall appearance of the bowel does not suggest bowel obstruction. Mass in the chest. Assessment & Plan - Diagnosis (1) Intractable pain Is this a current diagnosis for this admission?: Yes Plan: Most likely due to the metastatic disease we will adjust the pain medication and follow with oncology (2) Malignant neoplasm of upper lobe, left bronchus or lung Is this a current diagnosis for this admission?: Yes Plan: Patient's biopsies positive for squamous cell carcinoma (3) Malnutrition due to starvation Is this a current diagnosis for this admission?: Yes Plan: Continue some high-protein diets due to the recent malignancy (4) Therapeutic opioid induced constipation Is this a current diagnosis for this admission?: Yes Plan: We will continues the patient on MiraLAX and Colace and add the lactulose (5) Cerebrovascular accident Qualifiers: CVA mechanism: unspecified Qualified Code(s): I63.9 - Cerebral infarction, unspecified Is this a current diagnosis for this admission?: Yes Plan: Continues to current medications (6) Postobstructive pneumonia Is this a current diagnosis for this admission?: Yes Plan: Continues to IV antibiotic (7) Right inguinal hernia Is this a current diagnosis for this admission?: Yes Plan: We consult the surgery (8) Weakness Is this a current diagnosis for this admission?: Yes (9) Coronary artery disease Is this a current diagnosis for this admission?: Yes - Time Time Spent with patient: 15-24 minutes Medications reviewed and adjusted accordingly: Yes Anticipated discharge: Home - Inpatient Certification Medical Necessity: Need Close Monitoring Due to Risk of Patient Decompensation Post Hospital Care: D/C Waistline Joiner Documentation - Plan Summary Plan Summary: Continues current medications follow with the cartographic aide
--- NOTE | 2018-04-12 16:30 | PDOC CONSULTATION ---
Consultation Consult Date: 04/12/18 Attending physician:: KRUPA ROJAS Consult reason:: Inguinal hernia History of Present Illness Admission Date/PCP: 04/10/18 19:15 SADIA ROUSSEAU MD History of Present Illness: STEPHAN BELTRAN is a 73 year old male with metastatic squamous cell cancer, presumably of the lung. He is being seen in consultation at the request of Dr. Rojas. The patient reports that he has a reducible right inguinal hernia, that causes him occasional pain. The pain is sharp and stabbing. The patient has had the hernia for many years now. He reports that it is slowly enlarging. He describes his symptoms as moderate. The pain is worse with lifting and straining. Rest and direct pressure make his pain better. Patient denies incarceration or strangulation. The patient denies any nausea, vomiting, fevers , chills, abdominal pain, chest pain. Past Medical History Cardiac Medical History: Reports: Coronary Artery Disease, Myocardial Infarction , Hypertension Pulmonary Medical History: Reports: Chronic Obstructive Pulmonary Disease (COPD) Neurological Medical History: Reports: Ischemic CVA Malignancy Medical History: Reports: Lung Cancer Psychiatric Medical History: Denies: Depression Past Surgical History Past Surgical History: Reports: Coronary Artery Bypass Graft, Other - Removal of skin nodule Social History Lives with: Family Smoking Status: Former Smoker Cigarettes Packs Per Day: 1 Number of Years Smokin Frequency of Alcohol Use: None Hx Recreational Drug Use: No Hx Prescription Drug Abuse: No - Advance Directive Resuscitation Status: Full Code Family History Family History: Reviewed & Not Pertinent Parental Family History Reviewed: Yes Children Family History Reviewed: Yes Sibling(s) Family History Reviewed.: Yes Medication/Allergy Home Medications: Hydrocodone/Acetaminophen [[place] 10-325 mg Tablet] 1 tab PO Q4HP PRN tablet Levofloxacin [Levaquin 750 mg Tablet] 750 mg PO DAILY@1900 #10 tablet 04/07/18 Albuterol Sulfate [Proair Hfa Inhalation Aerosol 8.5 gm Mdi] 2 puff IH Q3HP PRN 04/10/18 Allergies/Adverse Reactions: No Known Allergies Allergy (Verified 04/10/18 21:08) Review of Systems Constitutional: ABSENT: chills, fever(s) Eyes: ABSENT: visual disturbances Ears: ABSENT: hearing changes Nose, Mouth, and Throat: ABSENT: mouth pain, sore throat Cardiovascular: ABSENT: palpitations Respiratory: ABSENT: dyspnea Gastrointestinal: PRESENT: abdominal pain - At hernia site Genitourinary: ABSENT: difficulty urinating Musculoskeletal: ABSENT: back pain Integumentary: PRESENT: lesions. ABSENT: erythema, pruritus, rash Neurological: ABSENT: abnormal movements, abnormal speech Psychiatric: ABSENT: anxiety, depression Endocrine: ABSENT: cold intolerance, heat intolerance Hematologic/Lymphatic: ABSENT: easy bleeding, easy bruising Physical Exam Vital Signs: Temp Pulse Resp BP Pulse Ox 97.5 F 92 16 148/78 H 92 04/12/18 03:11 04/12/18 14:17 04/12/18 14:17 04/12/18 03:11 04/12/18 14:17 Intake & Output 04/11/18 04/12/18 04/13/18 06:59 06:59 06:59 Intake Total 650 1121 Output Total 450 Balance 200 1121 Weight 63.1 kg 63.2 kg General appearance: PRESENT: no acute distress Head exam: PRESENT: atraumatic, normocephalic Eye exam: PRESENT: EOMI, PERRLA Mouth exam: PRESENT: moist, neck supple Neck exam: ABSENT: lymphadenopathy, meningismus, tenderness, thyromegaly, tracheal deviation Respiratory exam: PRESENT: unlabored. ABSENT: chest wall tenderness, rales, retraction, tachypnea, wheezes Cardiovascular exam: PRESENT: RRR Pulses: PRESENT: normal radial pulses Vascular exam: PRESENT: normal capillary refill. ABSENT: pallor GI/Abdominal exam: PRESENT: normal bowel sounds, soft, other - Bilateral inguinal hernias, reducible. Mildly tender to palpation on the right.. ABSENT : distended, tenderness Rectal exam: PRESENT: deferred Extremities exam: ABSENT: pedal edema Neurological exam: PRESENT: alert, awake, oriented to person, oriented to place , oriented to time, oriented to situation, CN II-XII grossly intact Psychiatric exam: ABSENT: agitated, anxious, depressed Skin exam: ABSENT: cyanosis, erythema, jaundice Results Laboratory Results: 04/12/18 05:57 04/12/18 05:57 04/12/18 04/12/18 05:57 05:57 WBC 12.2 H RBC 3.73 L Hgb 10.3 L Hct 30.5 L MCV 82 MCH 27.5 MCHC 33.6 RDW 15.1 H Plt Count 326 Seg Neutrophils % 79.0 H Lymphocytes % 9.8 L Monocytes % 9.9 Eosinophils % 0.8 Basophils % 0.5 Absolute Neutrophils 9.6 H Absolute Lymphocytes 1.2 Absolute Monocytes 1.2 Absolute Eosinophils 0.1 Absolute Basophils 0.1 Sodium 136.5 L Potassium 4.0 Chloride 99 Carbon Dioxide 25 Anion Gap 13 BUN 17 Creatinine 0.95 Est GFR ( Amer) > 60 Est GFR (Non-Af Amer) > 60 Glucose 97 Calcium 8.7 Impressions: Acute Abdomen Series 04/10/18 17:13 IMPRESSION: There is considerable stool in the ascending colon but not elsewhere in the bowel. The overall appearance of the bowel does not suggest bowel obstruction. Mass in the chest. Assessment & Plan - Diagnosis (1) Bilateral inguinal hernia Qualifiers: Obstruction and gangrene presence: without obstruction or gangrene Recurrence: non-recurrent Qualified Code(s): K40.20 - Bilateral inguinal hernia, without obstruction or gangrene, not specified as recurrent Is this a current diagnosis for this admission?: Yes - Plan Summary Plan Summary: This is a 73-year-old male with metastatic lung cancer and bilateral inguinal hernias. They are minimally symptomatic. At this time, I would recommend no intervention due to the patient's lack of symptoms and other, more pressing, medical issues. I have instructed the patient to contact me immediately if he begins to experience symptoms of strangulation, incarceration, or obstruction. I will see the patient again on an as-needed basis. Please renotify with any questions or concerns.
[2018-04-12] MEDS: ACETAMINOPHEN 325 MG TABLET PO PRN (18:52)
[2018-04-12] MEDS: OXYCODONE HCL IR 5 MG TABLET PO PRN (21:14)
[2018-04-13] MEDS: OXYCODONE HCL IR 5 MG TABLET PO PRN ×6 (00:38→20:45)
[2018-04-13 05:35] LABS: ABSOLUTE BASOPHILS # (AUTO) 0.1 10^3/uL (0.0-0.2); ABSOLUTE EOSINOPHILS # (AUTO) 0.2 10^3/uL (0.0-0.6); ABSOLUTE LYMPHOCYTES (AUTO) 1.2 10^3/uL (0.5-4.7); ABSOLUTE MONOCYTES (AUTO) 1.4 10^3/uL (0.1-1.4); ABSOLUTE NEUT (AUTO) 10.3 10^3/uL (1.7-8.2); BASOPHILS % (AUTO) 0.4 % (0-2); EOSINOPHILS % (AUTO) 1.4 % (0-6); HEMATOCRIT 29.6 % (37.9-51.0); HEMOGLOBIN 10.1 g/dL (13.5-17.0); LYMPHOCYTES % (AUTO) 9.2 % (13-45); MEAN CORPUSCULAR HEMOGLOBIN 27.7 pg (27.0-33.4); MEAN CORPUSCULAR VOLUME 82 fl (80-97); MONOCYTES % (AUTO) 10.6 % (3-13); PLATELET COUNT 322 10^3/uL (150-450); RED BLOOD COUNT 3.63 10^6/uL (4.35-5.55); SEGMENTED NEUTROPHILS % (AUTO) 78.4 % (42-78); TOTAL CELLS COUNTED % (AUTO) 100 %; WHITE BLOOD COUNT 13.2 10^3/uL (4.0-10.5)
[2018-04-13 05:57] LABS: ANION GAP 11 (5-19); BLOOD UREA NITROGEN 15 mg/dL (7-20); CALCIUM 8.4 mg/dL (8.4-10.2); CARBON DIOXIDE 24 mmol/L (22-30); CHLORIDE 99 mmol/L (98-107); GLUCOSE 95 mg/dL (75-110); POTASSIUM 3.9 mmol/L (3.6-5.0); SODIUM 133.8 mmol/L (137-145)
[2018-04-13] MEDS: IPRATROPIUM/ALBUTEROL 0.5-2.5 MG/3 ML AMPUL NEB SCH ×3 (08:15→20:08)
[2018-04-13] MEDS: DRONABINOL 2.5 MG CAPSULE PO SCH ×2 (08:45→12:56)
--- NOTE | 2018-04-13 08:53 | PDOC PROGRESS REPORT ---
Subjective Progress Note for:: 04/13/18 Subjective:: Patient seems to be in better pain control, but waited a long time to get his as needed pain medication yesterday, so yesterday evening required a dose of IV Dilaudid, increasing fentanyl patch today. Of note, we did have the biopsy results come back and it is squamous cell carcinoma, consistent with stage IV squamous cell carcinoma of the lung. Today I had a long discussion with patient , in addition his daughter and son-in-law who is a psychiatrist, were all at bedside. Spent greater than 45 minutes in discussion and coordination of care. He will need home health I will order [facility] home health for him. Depending on his pain control by tomorrow I think we can consider sending him home with home health with home physical therapy by tomorrow. Reason For Visit: LUNG CANCER,PNEUMONIA Physical Exam Vital Signs: Temp Pulse Resp BP Pulse Ox 98.6 F 84 16 133/77 H 94 04/13/18 07:41 04/13/18 07:41 04/13/18 07:41 04/13/18 07:41 04/13/18 07:41 Intake & Output 04/12/18 04/13/18 04/14/18 06:59 06:59 06:59 Intake Total 1121 540 Output Total 100 Balance 1121 440 Weight 63.2 kg 71.8 kg General appearance: PRESENT: no acute distress, well-developed, well-nourished Head exam: PRESENT: atraumatic, normocephalic Eye exam: PRESENT: conjunctiva pink, EOMI, PERRLA. ABSENT: scleral icterus Ear exam: PRESENT: normal external ear exam Mouth exam: PRESENT: moist, tongue midline Neck exam: ABSENT: carotid bruit, JVD, lymphadenopathy, thyromegaly Respiratory exam: PRESENT: clear to auscultation tammie. ABSENT: rales, rhonchi, wheezes Cardiovascular exam: PRESENT: RRR. ABSENT: diastolic murmur, rubs, systolic murmur Pulses: PRESENT: normal dorsalis pedis pul Vascular exam: PRESENT: normal capillary refill GI/Abdominal exam: PRESENT: normal bowel sounds, soft. ABSENT: distended, guarding, mass, organolmegaly, rebound, tenderness Rectal exam: PRESENT: deferred Extremities exam: PRESENT: full ROM. ABSENT: calf tenderness, clubbing, pedal edema Neurological exam: PRESENT: alert, awake, oriented to person, oriented to place , oriented to time, oriented to situation, CN II-XII grossly intact. ABSENT: motor sensory deficit Psychiatric exam: PRESENT: appropriate affect, normal mood. ABSENT: homicidal ideation, suicidal ideation Skin exam: PRESENT: dry, intact, warm. ABSENT: cyanosis, rash Results Laboratory Results: 04/13/18 04:37 04/13/18 04:37 04/13/18 04/13/18 04:37 04:37 WBC 13.2 H RBC 3.63 L Hgb 10.1 L Hct 29.6 L MCV 82 MCH 27.7 MCHC 34.0 RDW 15.0 H Plt Count 322 Seg Neutrophils % 78.4 H Lymphocytes % 9.2 L Monocytes % 10.6 Eosinophils % 1.4 Basophils % 0.4 Absolute Neutrophils 10.3 H Absolute Lymphocytes 1.2 Absolute Monocytes 1.4 Absolute Eosinophils 0.2 Absolute Basophils 0.1 Sodium 133.8 L Potassium 3.9 Chloride 99 Carbon Dioxide 24 Anion Gap 11 BUN 15 Creatinine 0.85 Est GFR ( Amer) > 60 Est GFR (Non-Af Amer) > 60 Glucose 95 Calcium 8.4 Impressions: Acute Abdomen Series 04/10/18 17:13 IMPRESSION: There is considerable stool in the ascending colon but not elsewhere in the bowel. The overall appearance of the bowel does not suggest bowel obstruction. Mass in the chest. Assessment & Plan - Diagnosis (1) Malignant neoplasm of upper lobe, left bronchus or lung Is this a current diagnosis for this admission?: Yes Plan: We have fully diagnosed stage IV lung cancer and I discussed with them the extent of disease, prognosis and next steps of care, he seems to be understanding of his diagnosis, plan for outpatient evaluation and consideration of systemic chemotherapy. (2) Intractable pain Is this a current diagnosis for this admission?: Yes Plan: Pain is improving, increase fentanyl patch today (3) Malnutrition due to starvation Is this a current diagnosis for this admission?: Yes Plan: Continue Ensure, son-in-law did have a question about TPN but noted that this is not an option. (4) Therapeutic opioid induced constipation Is this a current diagnosis for this admission?: Yes Plan: Continue with Dr. Ran truong and he will try that today - Time Time Spent with patient: 35 or more minutes - Inpatient Certification Based on my medical assessment, after consideration of the patient's comorbidities, presenting symptoms, or acuity I expect that the services needed warrant INPATIENT care.: Yes I certify that my determination is in accordance with my understanding of Medicare's requirements for reasonable and necessary INPATIENT services [42 CFR 412.3e].: Yes Medical Necessity: Need for Pain Control
[2018-04-13] MEDS: ENOXAPARIN SODIUM INJ 40 MG/0.4 ML DISP.SYRIN SUBCUT SCH (09:43)
[2018-04-13] MEDS: FAMOTIDINE 20 MG TABLET PO SCH ×2 (09:44→21:48)
[2018-04-13] MEDS: POLYETHYLENE GLYCOL 3350 POWDER 17 GM/1 PACKET PO SCH (09:44)
[2018-04-13] MEDS: DOCUSATE SODIUM 100 MG CAPSULE PO SCH ×2 (09:45→16:38)
[2018-04-13] MEDS: LUBIPROSTONE 24 MCG CAPSULE PO SCH ×2 (09:47→16:38)
[2018-04-13] MEDS: CEFEPIME 1 GM/D5W RTU 1 GM/50 ML RTUPB IV SCH ×2 (09:47→21:48)
[2018-04-13] MEDS ORDERED: FENTANYL 25 MCG/HR PATCH.TD72 TD ONE (11:00)
--- NOTE | 2018-04-13 12:55 | PDOC PROGRESS REPORT ---
Subjective Progress Note for:: 04/13/18 Subjective:: Patient is currently doing fair And have a some positive bowel movement but still not yet Fully Patient's biopsy come back today with the poorly differentiated squamous cell carcinoma On a skin nodule Reason For Visit: LUNG CANCER,PNEUMONIA Physical Exam Vital Signs: Temp Pulse Resp BP Pulse Ox 98.6 F 97 17 131/72 H 94 04/13/18 11:10 04/13/18 11:10 04/13/18 11:10 04/13/18 11:10 04/13/18 11:10 Intake & Output 04/12/18 04/13/18 04/14/18 06:59 06:59 06:59 Intake Total 1121 540 Output Total 100 Balance 1121 440 Weight 63.2 kg 71.8 kg General appearance: PRESENT: no acute distress, well-developed, well-nourished Head exam: PRESENT: atraumatic, normocephalic Eye exam: PRESENT: conjunctiva pink, EOMI, PERRLA. ABSENT: scleral icterus Ear exam: PRESENT: normal external ear exam Mouth exam: PRESENT: moist, tongue midline Neck exam: PRESENT: full ROM. ABSENT: carotid bruit, JVD, lymphadenopathy, thyromegaly Respiratory exam: PRESENT: clear to auscultation tammie Cardiovascular exam: PRESENT: RRR. ABSENT: diastolic murmur, rubs, systolic murmur Pulses: PRESENT: normal dorsalis pedis pul, +2 pedal pulses bilateral Vascular exam: PRESENT: normal capillary refill GI/Abdominal exam: PRESENT: normal bowel sounds, soft. ABSENT: distended, guarding, mass, organolmegaly, rebound, tenderness Rectal exam: PRESENT: deferred Extremities exam: ABSENT: pedal edema Neurological exam: PRESENT: alert, awake, oriented to person, oriented to place , oriented to time, oriented to situation, CN II-XII grossly intact. ABSENT: motor sensory deficit Psychiatric exam: PRESENT: appropriate affect, normal mood. ABSENT: homicidal ideation, suicidal ideation Skin exam: PRESENT: dry, intact, warm. ABSENT: cyanosis, rash Results Laboratory Results: 04/13/18 04:37 04/13/18 04:37 04/13/18 04/13/18 04:37 04:37 WBC 13.2 H RBC 3.63 L Hgb 10.1 L Hct 29.6 L MCV 82 MCH 27.7 MCHC 34.0 RDW 15.0 H Plt Count 322 Seg Neutrophils % 78.4 H Lymphocytes % 9.2 L Monocytes % 10.6 Eosinophils % 1.4 Basophils % 0.4 Absolute Neutrophils 10.3 H Absolute Lymphocytes 1.2 Absolute Monocytes 1.4 Absolute Eosinophils 0.2 Absolute Basophils 0.1 Sodium 133.8 L Potassium 3.9 Chloride 99 Carbon Dioxide 24 Anion Gap 11 BUN 15 Creatinine 0.85 Est GFR ( Amer) > 60 Est GFR (Non-Af Amer) > 60 Glucose 95 Calcium 8.4 Impressions: Acute Abdomen Series 04/10/18 17:13 IMPRESSION: There is considerable stool in the ascending colon but not elsewhere in the bowel. The overall appearance of the bowel does not suggest bowel obstruction. Mass in the chest. Assessment & Plan - Diagnosis (1) Intractable pain Is this a current diagnosis for this admission?: Yes (2) Malignant neoplasm of upper lobe, left bronchus or lung Is this a current diagnosis for this admission?: Yes (3) Malnutrition due to starvation Is this a current diagnosis for this admission?: Yes (4) Therapeutic opioid induced constipation Is this a current diagnosis for this admission?: Yes (5) Cerebrovascular accident Qualifiers: CVA mechanism: unspecified Qualified Code(s): I63.9 - Cerebral infarction, unspecified Is this a current diagnosis for this admission?: Yes (6) Postobstructive pneumonia Is this a current diagnosis for this admission?: Yes (7) Right inguinal hernia Is this a current diagnosis for this admission?: Yes (8) Weakness Is this a current diagnosis for this admission?: Yes (9) Coronary artery disease Is this a current diagnosis for this admission?: Yes - Time Time Spent with patient: 15-24 minutes Medications reviewed and adjusted accordingly: Yes Anticipated discharge: Home Within: within 24 hours - Inpatient Certification Medical Necessity: Need Close Monitoring Due to Risk of Patient Decompensation Post Hospital Care: 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
[2018-04-13] MEDS ORDERED: PEG 3350/NA SULF,BICARB,CL/KCL 4000 ML PO PRN (16:30)
[2018-04-14] MEDS: OXYCODONE HCL IR 5 MG TABLET PO PRN ×4 (00:20→15:20)
[2018-04-14] MEDS: IPRATROPIUM/ALBUTEROL 0.5-2.5 MG/3 ML AMPUL NEB SCH ×2 (08:06→14:03)
--- NOTE | 2018-04-14 08:11 | PDOC PROGRESS REPORT ---
Subjective Progress Note for:: 04/14/18 Subjective:: Pt doing better still no BM, but feels ready to d/c home. Reason For Visit: LUNG CANCER,PNEUMONIA Physical Exam Vital Signs: Temp Pulse Resp BP Pulse Ox 98.4 F 89 17 119/83 91 L 04/13/18 15:12 04/14/18 02:00 04/13/18 20:08 04/13/18 15:12 04/13/18 20:08 Intake & Output 04/13/18 04/14/18 04/15/18 06:59 06:59 06:59 Intake Total 540 618 Output Total 100 300 Balance 440 318 Weight 71.8 kg 71.7 kg General appearance: PRESENT: no acute distress, well-developed, well-nourished Head exam: PRESENT: atraumatic, normocephalic Eye exam: PRESENT: conjunctiva pink, EOMI, PERRLA. ABSENT: scleral icterus Ear exam: PRESENT: normal external ear exam Mouth exam: PRESENT: moist, tongue midline Neck exam: ABSENT: carotid bruit, JVD, lymphadenopathy, thyromegaly Respiratory exam: PRESENT: clear to auscultation tammie. ABSENT: rales, rhonchi, wheezes Cardiovascular exam: PRESENT: RRR. ABSENT: diastolic murmur, rubs, systolic murmur Pulses: PRESENT: normal dorsalis pedis pul Vascular exam: PRESENT: normal capillary refill GI/Abdominal exam: PRESENT: normal bowel sounds, soft. ABSENT: distended, guarding, mass, organolmegaly, rebound, tenderness Rectal exam: PRESENT: deferred Extremities exam: PRESENT: full ROM. ABSENT: calf tenderness, clubbing, pedal edema Neurological exam: PRESENT: alert, awake, oriented to person, oriented to place , oriented to time, oriented to situation, CN II-XII grossly intact. ABSENT: motor sensory deficit Psychiatric exam: PRESENT: appropriate affect, normal mood. ABSENT: homicidal ideation, suicidal ideation Skin exam: PRESENT: dry, intact, warm. ABSENT: cyanosis, rash Results Laboratory Results: 04/13/18 04:37 04/13/18 04:37 Impressions: Acute Abdomen Series 04/10/18 17:13 IMPRESSION: There is considerable stool in the ascending colon but not elsewhere in the bowel. The overall appearance of the bowel does not suggest bowel obstruction. Mass in the chest. Assessment & Plan - Diagnosis (1) Malignant neoplasm of upper lobe, left bronchus or lung Is this a current diagnosis for this admission?: Yes Plan: Stage IV SCCa lung, plan f/u as oupt and hopeful initiation of chemo/rx (2) Intractable pain Is this a current diagnosis for this admission?: Yes Plan: Improved, d/c w/ pain rx, son in law will picking crew supervisor today (3) Malnutrition due to starvation Is this a current diagnosis for this admission?: Yes Plan: Suggested supplements for home (4) Therapeutic opioid induced constipation Is this a current diagnosis for this admission?: Yes Plan: change amitaza to linzess on d/c as no bm from amitaza thus far - Time Time Spent with patient: 35 or more minutes
[2018-04-14] MEDS: DRONABINOL 2.5 MG CAPSULE PO SCH ×2 (08:55→12:11)
[2018-04-14] MEDS: FAMOTIDINE 20 MG TABLET PO SCH (09:06)
[2018-04-14] MEDS: DOCUSATE SODIUM 100 MG CAPSULE PO SCH (09:06)
[2018-04-14] MEDS: LUBIPROSTONE 24 MCG CAPSULE PO SCH (09:07)
[2018-04-14] MEDS: CEFEPIME 1 GM/D5W RTU 1 GM/50 ML RTUPB IV SCH (09:09)
[2018-04-14] MEDS: ENOXAPARIN SODIUM INJ 40 MG/0.4 ML DISP.SYRIN SUBCUT SCH (09:10)
[2018-04-14] MEDS: POLYETHYLENE GLYCOL 3350 POWDER 17 GM/1 PACKET PO SCH (09:10)
[2018-04-14] MEDS ORDERED: MAGNESIUM CITRATE 296 ML BOTTLE PO ONE (12:45)
--- NOTE | 2018-04-14 14:16 | PDOC DISCHARGE SUMMARY ---
General - Admit/Disc Date/PCP Admission Date/Primary Care Provider: 04/10/18 19:15 SADIA ROUSSEAU MD Discharge Date: 04/14/18 - Discharge Diagnosis (1) Intractable pain Is this a current diagnosis for this admission?: Yes Summary: Currently better with the continuous the pain medications per the oncology (2) Malignant neoplasm of upper lobe, left bronchus or lung Is this a current diagnosis for this admission?: Yes Summary: Follow with the oncology as outpatient (3) Malnutrition due to starvation Is this a current diagnosis for this admission?: Yes (4) Therapeutic opioid induced constipation Is this a current diagnosis for this admission?: Yes Summary: Continues to current medications (5) Cerebrovascular accident Is this a current diagnosis for this admission?: Yes Summary: Continues to Aggrenox (6) Postobstructive pneumonia Is this a current diagnosis for this admission?: Yes Summary: Most likely currently from the lung cancers which basically patients do not chemotherapy (7) Right inguinal hernia Is this a current diagnosis for this admission?: Yes Summary: Currently all stable is no need for surgical interventions for surgery (8) Weakness Is this a current diagnosis for this admission?: Yes (9) Coronary artery disease Is this a current diagnosis for this admission?: Yes - Additional Information Resuscitation Status: Full Code Discharge Diet: As Tolerated Discharge Activity: Activity As Tolerated Prescriptions: Dronabinol [Marinol 2.5 mg Capsule] 2.5 mg PO BID@0800,1200 #60 capsule Ipratropium/Albuterol Sulfate [Duoneb 3 ml Ampul] 3 ml NEB RTQ6HP PRN #120 vial.neb PRN Reason: Linaclotide [Linzess 145 Mcg Capsule] 145 mcg PO DAILY #30 capsule Nebulizer [Nebulizer Machine] 1 each MC ASDIR PRN #1 kit PRN Reason: Home Medications: Hydrocodone/Acetaminophen [[place] 10-325 mg Tablet] 1 tab PO Q4HP PRN tablet Albuterol Sulfate [Proair HFA Inhalation Aerosol 8.5 gm MDI] 2 puff IH Q3HP PRN 04/10/18 Dronabinol [Marinol 2.5 mg Capsule] 2.5 mg PO BID@0800,1200 #60 capsule Ipratropium/Albuterol Sulfate [Duoneb 3 ml Ampul] 3 ml NEB RTQ6HP PRN #120 vial.neb 04/14/18 Linaclotide [Linzess 145 Mcg Capsule] 145 mcg PO DAILY #30 capsule 04/14/18 Nebulizer [Nebulizer Machine] 1 each ASDIR PRN #1 kit 04/14/18 History of Present Illness History of Present Illness: STEPHAN BELTRAN is a 73 year old male This is a 73-year-old male with the recently admitted several times in the hospital first is for the lung cancer's with the metastatic disease and recently have a acute CVA events and also history of the coronary artery diseaseHave a PET scan done yesterday which is positive for malignancy and also have a several subcutaneous skin nodules which is probablyFrom the lung cancersNot the tissue biopsies done Patients called the oncology Dr. Valdez and have a severe pain all over the body currently on a pain medications but not well controlled And suggest to come to the emergency department for further evaluation and for pain management When I saw the patient in the emergency departments patient's was alert awake oriented patient's recently lost more weight and the pain is not well controlled with the pain medications also complains of constipations Patient have a PET scan done yesterday with suggest that several retroperitoneal node and positive SUVFor the malignancy Very extensive discussions with the patient and the daughter yesterday regarding all the patient's current status of the lung cancers and her daughters pretty much wants more comfort care with some pain medications and they were discussed with the oncology for further treatment options As per discussed with the ER physicians and consult the plastic surgery for the biopsy of the subcutaneous nodules Hospital Course Hospital Course: This is a 73-year-old male's with recently diagnosed with the lung cancers in a patient have a subcutaneous nodule biopsy was done which suggested a squamous cell carcinoma and patient seen by the oncologyIn patients admitted because of intractable pain and adjust the pain medications Patient also have a challenge with the constipation is due to the pain medications and currently adjust the summer constipations medications Also significant history of the COPD with a history of a chronic smoking in the past currently required a nebulizer treatments and currently require oxygen at home Patient also follow with oncology as outpatient Significant discussions with the oncology and very extensive discussions with the patient's daughter and other family member regarding the patient's current conditions with the poor prognosis Physical Exam Vital Signs: Temp Pulse Resp BP Pulse Ox 98.7 F 91 18 134/75 H 99 04/14/18 11:57 04/14/18 11:57 04/14/18 11:57 04/14/18 11:57 04/14/18 11:57 Intake & Output 04/13/18 04/14/18 04/15/18 06:59 06:59 06:59 Intake Total 540 618 Output Total 100 300 Balance 440 318 Weight 71.8 kg 71.7 kg General appearance: PRESENT: no acute distress, thin Head exam: PRESENT: atraumatic, normocephalic Eye exam: PRESENT: conjunctiva pink, EOMI, PERRLA. ABSENT: scleral icterus Ear exam: PRESENT: normal external ear exam Mouth exam: PRESENT: moist, tongue midline Neck exam: PRESENT: full ROM. ABSENT: carotid bruit, JVD, lymphadenopathy, thyromegaly Respiratory exam: PRESENT: clear to auscultation tammie Cardiovascular exam: PRESENT: RRR. ABSENT: diastolic murmur, rubs, systolic murmur Pulses: PRESENT: normal dorsalis pedis pul, +2 pedal pulses bilateral Vascular exam: PRESENT: normal capillary refill GI/Abdominal exam: PRESENT: normal bowel sounds, soft. ABSENT: distended, guarding, mass, organolmegaly, rebound, tenderness Rectal exam: PRESENT: deferred Neurological exam: PRESENT: alert, awake, oriented to person, oriented to place , oriented to time, oriented to situation, CN II-XII grossly intact. ABSENT: motor sensory deficit Psychiatric exam: PRESENT: appropriate affect, normal mood. ABSENT: homicidal ideation, suicidal ideation Skin exam: PRESENT: dry, intact, warm. ABSENT: cyanosis, rash Results Laboratory Results: 04/13/18 04:37 04/13/18 04:37 Impressions: Acute Abdomen Series 04/10/18 17:13 IMPRESSION: There is considerable stool in the ascending colon but not elsewhere in the bowel. The overall appearance of the bowel does not suggest bowel obstruction. Mass in the chest. Qualifiers - * PATIENT BEING DISCHARGED WITH ANY OF THE FOLLOWING DIAGNOSIS: No VTE patient discharged on overlapping Therapy?: Yes Plan Time Spent: Greater than 30 Minutes - Patient's currently discharged home with a home health and very external discussed and the patient's family and her daughter regarding the patient's current conditions and a not a very good prognosis
[2018-04-14 16:38] VITALS: BP 129/71
[2018-04-16] MEDS ORDERED: FENTANYL 25 MCG/HR PATCH.TD72 TD SCH (10:00)
== END 2018-04-14 17:28 | disposition home health service (06) | DRG 166 ==
LOC: ER 16:33 → EH 19:15 → 4N 21:47
PROVIDERS: ADMIT Family Medicine; ATTEND Family Medicine
PROC: 0WB8XZZ Excision of Chest Wall, External Approach (ICD-10-PCS; principal; 2018-04-10)
PROC: 3E0F73Z Introduction of Anti-inflammatory into Respiratory Tract, Via Natural or Artificial Opening (ICD-10-PCS; 2018-04-10)
DX: J18.9 Pneumonia, unspecified organism (principal); E40 Kwashiorkor; C34.12 Malignant neoplasm of upper lobe, left bronchus or lung; Z68.1 Body mass index [BMI] 19.9 or less, adult; C79.2 Secondary malignant neoplasm of skin; K59.03 Drug induced constipation; T40.2X5A Adverse effect of other opioids, initial encounter; T73.0XXA Starvation, initial encounter; K40.90 Unilateral inguinal hernia, without obstruction or gangrene, not specified as recurrent; I25.10 Atherosclerotic heart disease of native coronary artery without angina pectoris; I10 Essential (primary) hypertension; J44.9 Chronic obstructive pulmonary disease, unspecified; R59.0 Localized enlarged lymph nodes; I25.2 Old myocardial infarction; Z79.899 Other long term (current) drug therapy; Z86.73 Personal history of transient ischemic attack (TIA), and cerebral infarction without residual deficits; Z95.1 Presence of aortocoronary bypass graft; Z87.891 Personal history of nicotine dependence
CPT/HCPCS: 36415; 74022; 80048; 80053; 81001; 84484; 85025; 85610; 85730; 87040; 88305; 93005; 93010; 99285; A9270-GY; G8978-GP; G8979-GP; J0692; J1170; J1650; J3490; J7620